=== PATIENT | female | born 1980 | race Caucasian/White ===

== ENCOUNTER 2019-03-24 21:42 | Emergency (ER) | payer SELFPAY ==
[~2019-03-24] VITALS: Ht 162.5 cm; Wt 89.5 kg
--- NOTE | 2019-03-24 22:07 | Diagnostic Imaging Report ---
INDICATION: Status post fall at work 4 days ago. Continued pain. TECHNIQUE: 3 views of the right wrist CORRELATION STUDY: None FINDINGS: The osseous structures of the wrist have an unremarkable appearance. Alignment is anatomic. There is no acute bony abnormality. The visualized soft tissues appearing unremarkable. IMPRESSION: 1. Negative examination of the wrist. Dictated by: Dictated on workstation # [id number]
--- NOTE | 2019-03-24 22:11 | ED Upper Extremity ---
General Chief Complaint: Upper Extremity Stated Complaint: RIGHT WRIST PAIN Nursing Triage Note: PT. REPORTED RIGHT WRIST HAS BEEN HURTING FOR A WEEK. SHE SLIPPED ABOUT A WEEK AGO AT WORK AND MAYBE HIT IT ON SOMETHING. SHE HAS USED ICE AND HEAT AND HAS BEEN TAKING ALEVE FOR THE PAIN. Nursing Sepsis Screen: No Definite Risk Source: patient History of Present Illness Date Seen by Provider: Mar 24, 2019 Time Seen by Provider: 22:10 Initial Comments 38 yo F presents with right wrist pain along ulnar side of wrist that has been present for 1 week. She was starting at new job when she did not have nonslick shoes to wear to work yet,. She slipped on the floor and hit her wrist against a sink. She has had pain from this injury all week. She did not go to work tonight because it had hurt so bad. She has no numbness or tingling to the hand or fingers. She has tried taking ibuprofen with little to no improvement. She has no prior problems with her wrist or hand in the past. Allergies and Home Medications Allergies Coded Allergies: No Known Drug Allergies (Unverified , 03/24/19) Patient Home Medication List Home Medication List Reviewed: Yes Review of Systems Constitutional: no symptoms reported Gastrointestinal: no symptoms reported Musculoskeletal: see HPI Skin: No change in color Psychiatric/Neurological: Denies Numbness, Denies Paresthesia Past Ntwevbq-Jgella-Hpopfb Hx Past Med/Social Hx: Reviewed Nursing Past Med/Soc Hx Patient Social History Recent Foreign Travel: No Contact w/Someone Who Travel: No Recent Infectious Disease Expo: No Recent Hopitalizations: No Physical Abuse: No Sexual Abuse: No Mistreated: No Fear: No Seasonal Allergies Seasonal Allergies: No Past Medical History Surgeries: No Respiratory: No Cardiac: No Neurological: No Genitourinary: No Gastrointestinal: No Musculoskeletal: No Endocrine: No HEENT: No Cancer: No Psychosocial: No Integumentary: No Blood Disorders: No Physical Exam Vital Signs Vital Signs - First Documented 03/24/19 21:48 Temp 36.9 Pulse 93 Resp 18 B/P (MAP) 130/96 (107) Pulse Ox 98 O2 Delivery Room Air Capillary Refill : Less Than 3 Seconds Height, Weight, BMI Height: '" Weight: lbs. oz. kg; 33.00 BMI Method: General Appearance: WD/WN, no apparent distress Cardiovascular: normal peripheral pulses Wrist: Yes bone tenderness (right distal ulna); No deformity, No ecchymosis; Yes limited ROM (decreased range of motion right wrist due to pain), Yes pain (tender to palpation over right distal ulnar area); No swelling Neurologic/Tendon: normal sensation, normal motor functions, normal tendon functions Neurologic/Psychiatric: alert, oriented x 3 Skin: normal color, warm/dry Progress/Results/Core Measures Results/Orders My Orders Orders - ALBERT LOWRY MD Wrist 3 View Right (03/24/19 21:55) Wrist-[place] (03/24/19 22:54) Vital Signs/I&O 03/24/19 03/24/19 21:48 23:04 Temp 36.9 36.9 Pulse 93 93 Resp 18 18 B/P (MAP) 130/96 (107) 130/96 (107) Pulse Ox 98 98 O2 Delivery Room Air Room Air Blood Pressure Mean: 107 POS Progress Progress Note : Progress Note treat with cock up wrist splint and NSAIDS. Advised that if she is not improving then she should follow up with clinic or ortho for continued problems. Diagnostic Imaging Diagonstic Imaging: Xray Plain Films/CT/US/NM/MRI: other (wrist) Comments NAME: CORBY MARKS MED REC#: [id number] PT STATUS: REG ER : 1980 PHYSICIAN: ALBERT LOWRY MD ADMIT DATE: 03/24/19/ER FS Draft POSDate of Exam:03/24/19 WRIST 3 VIEW RIGHT INDICATION: Status post fall at work 4 days ago. Continued pain. TECHNIQUE: 3 views of the right wrist CORRELATION STUDY: None FINDINGS: The osseous structures of the wrist have an unremarkable appearance. Alignment is anatomic. There is no acute bony abnormality. The visualized soft tissues appearing unremarkable. IMPRESSION: 1. Negative examination of the wrist. Dictated on workstation # [id number] Dict: 03/24/192205 Trans: 03/24/192205 DO [id number] Interpreted by: EZE NOLAN DO Electronically signed by: Departure Impression Primary Impression: Contusion of wrist Qualified Codes: S60.211A - Contusion of right wrist, initial encounter Additional Impression: Wrist pain, right Disposition: 01 HOME, SELF-CARE Condition: Stable Departure-Patient Inst. Decision time for Depature: 22:57 Referrals: NO,LOCAL PHYSICIAN (PCP) Primary Care Physician [facility] [place] [facility] [place] Patient Instructions: Contusion (DC), Common Wrist Injuries (DC) Add. Discharge Instructions: Wear wrist splint to help with pain and let your wrist heal and rest. Continue with Ibuprofen to help with pain and inflammation. A maximum dose would be 800 mg every 8 hours Check with clinic for continued pain and if not improving. Primary provider or Orthopedics for follow up. Everardo Rush with Orthopedics is in clinic here at [place] and can be reached by calling. [phone] All discharge instructions reviewed with patient and/or family. Voiced understanding. Work/School Note: Work Release Form Date Seen in the Emergency Department: Mar 24, 2019 Return to Work: Mar 25, 2019 Restrictions: Need Release from Doctor Other Restrictions Listed Below: May return 2018. Wear splint at work until released by provider. ALBERT LOWRY MD Mar 24, 2019 22:11 POS
[2019-03-24 23:04] VITALS: BP 130/96
== END 2019-03-24 23:04 | disposition home or self-care (01) ==
LOC: ER FS 21:45
DX: S60.211A Contusion of right wrist, initial encounter (principal); W01.198A Fall on same level from slipping, tripping and stumbling with subsequent striking against other object, initial encounter; Y92.59 Other trade areas as the place of occurrence of the external cause
CPT/HCPCS: 73110

== ENCOUNTER 2019-03-28 13:04 | Emergency (ER) | payer SELFPAY ==
[~2019-03-28] VITALS: Ht 162.5 cm; Wt 89.5 kg
--- NOTE | 2019-03-28 14:31 | ED Integumentary General ---
General Chief Complaint: Skin/Wound Problems Stated Complaint: RASH Nursing Triage Note: Pt presents to ED reporting she moved recently this week and acquired new furniture. Pt developed a macular rash scatered on extremities and jawline/scalp line. Pt reports intense itching. Source: patient History of Present Illness Date Seen by Provider: Mar 28, 2019 Time Seen by Provider: 14:31 Initial Comments 38-year-old female presenting with complaints of erythematous rash that is present along her face arms and she spots on her legs. She noted this within the last week since moving here. She thinks that it came on since she had acquired furniture from [employer]. She was the only family member that has this. Nob abigail else in the house has it. She has tried topical zqoe-xsw-frprjmf treatments without any success. She is continuing to have new spots arise. Nothing has helped. They're intensely itchy. Allergies and Home Medications Allergies Coded Allergies: No Known Drug Allergies (Unverified , 03/24/19) Home Medications Prednisone 20 Mg Tab, 40 MG PO DAILY Prescribed by: ALBERT LOWRY on 03/28/19 9971 Patient Home Medication List Home Medication List Reviewed: Yes Review of Systems Review of Systems Constitutional: No chills, No fever, No malaise EENTM: no symptoms reported Respiratory: no symptoms reported Cardiovascular: no symptoms reported Gastrointestinal: no symptoms reported Genitourinary: no symptoms reported Musculoskeletal: joint pain (recent injury to right wrist and still having some pain there) Skin: see HPI Psychiatric/Neurological: No Symptoms Reported Past Gzqgxkp-Huvwmk-Ywixvt Hx Past Med/Social Hx: Reviewed Nursing Past Med/Soc Hx Patient Social History Alcohol Use: Occasionally Uses Recreational Drug Use: No Smoking Status: Former Smoker Recent Foreign Travel: No Contact w/Someone Who Travel: No Recent Infectious Disease Expo: No Recent Hopitalizations: No Physical Abuse: No Sexual Abuse: No Mistreated: No Fear: No Seasonal Allergies Seasonal Allergies: No Past Medical History Surgeries: Yes Tubal Ligation Respiratory: No Cardiac: No Neurological: No 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) Gastrointestinal: No Musculoskeletal: No Endocrine: No HEENT: No Cancer: No Psychosocial: No Integumentary: Yes (rash developed 2 days ago when new furniture rec'd on a move) Blood Disorders: No Physical Exam Vital Signs Vital Signs - First Documented 03/28/19 13:24 Temp 36.5 Pulse 91 Resp 16 B/P (MAP) 137/86 (103) Pulse Ox 98 O2 Delivery Room Air Capillary Refill : Less Than 3 Seconds General Appearance: WD/WN, no apparent distress HEENT: PERRL/EOMI, pharynx normal Neck: non-tender, supple, normal inspection Cardiovascular: normal peripheral pulses, regular rate, rhythm Respiratory: chest non-tender, lungs clear, normal breath sounds Skin: warm/dry, rash (macular rash with several spots on her face and head as well as her arms and then 1 or 2 spots on her legs. The areas are approximately 2-3 cm in diameter. She does have some excoriation as well.) Skin Problem Location: face, scalp, upper extremities, lower extremities Skin Problem Character: macules Lymphatic: no adenopathy Progress/Results/Core Measures Results/Orders My Orders Orders - ALBERT LOWRY MD Dexamethasone Injection (Decadron Inject (03/28/19 14:45) Methylprednisolone Acetate Inj (Depo-Med (03/28/19 14:45) Vital Signs/I&O 03/28/19 03/28/19 13:24 14:58 Temp 36.5 36.6 Pulse 91 87 Resp 16 16 B/P (MAP) 137/86 (103) 137/94 (103) Pulse Ox 98 98 O2 Delivery Room Air Room Air Blood Pressure Mean: 103 POS Progress Progress Note : Progress Note Counseled that I cannot say exactly what was causing them. Will treat with steroids and antihistamines. Advised to check back with clinic if having continued concerns. Also advised that if this was related to the furniture was fleas or some sort of insect or bug on the furniture that she could assess [facility] maybe trying out the furniture. She could also try Aveeno oatmeal baths and see if that might help with itching. Departure Impression Primary Impression: Rash and nonspecific skin eruption Additional Impression: Pruritic dermatitis Disposition: 01 HOME, SELF-CARE Condition: Stable Departure-Patient Inst. Decision time for Depature: 14:47 Referrals: NO,LOCAL PHYSICIAN (PCP) Primary Care Physician [facility] [place] Patient Instructions: Skin Rash (DC), Itchy Skin Add. Discharge Instructions: The steroids and antihistamines will help with the rash and itching. For the antihistamines you could take Benadryl (Diphenhydramine) over the counter as 25 mg pills or capsules and take up to 50 mg every 4 to 6 hours as needed for rash and itching. You may take additional Prednisone by mouth for the next few days to help with the rash. Start these pills tomorrow since you had the steroid shots today. Try an Oatmeal bath such as by Aveeno or a store brand to help with itching and rash as well. In case this is from your new furniture you could see if the [employer] would let you trade out the furniture for a different set. All discharge instructions reviewed with patient and/or family. Voiced understanding. Scripts Prednisone (Prednisone) 20 Mg Tab 40 MG PO DAILY for 4 Days, #8 TAB 0 Refills Prov: ALBERT LOWRY MD 03/28/19 Work/School Note: Work Release Form Date Seen in the Emergency Department: Mar 28, 2019 Return to Work: Mar 31, 2019 Restrictions: No Restrictions ALBERT LOWRY MD Mar 28, 2019 14:31 POS
[2019-03-28] MEDS ORDERED: DEXAMETHASONE 10 MG/ML (DECADRON) 1 ML VIAL IM STA (14:45)
[2019-03-28] MEDS ORDERED: methylPREDNISolone 80 MG/ML (DEPO MEDROL) VIAL IM STA (14:45)
[2019-03-28] MEDS ORDERED: PRD20T PO (14:51)
[2019-03-28 14:58] VITALS: BP 137/94
== END 2019-03-28 14:58 | disposition home or self-care (01) ==
LOC: EDUNIT# 13:04 → ER FS 13:05
DX: L30.8 Other specified dermatitis (principal); Z87.891 Personal history of nicotine dependence; Z98.51 Tubal ligation status
CPT/HCPCS: 99282

== ENCOUNTER 2019-11-23 18:17 | Emergency (ER) | payer SELFPAY ==
[~2019-11-23] VITALS: Ht 162.5 cm; Wt 91.0 kg
[~2019-11-23 18:17] MED LIST: PRD20T PO
--- NOTE | 2019-11-23 18:21 | NUR ---
Went to call patient back and registration states she advised her that no visitors and her 14 y/o dgt was going to go to car then patient decided she was going back by house and drop her off and return.
[2019-11-23 18:37] VITALS: BP 136/81
--- NOTE | 2019-11-23 18:45 | ED General ---
General Stated Complaint: BUMP ON ABD Source of Information: Patient Exam Limitations: No Limitations History of Present Illness Date Seen by Provider: Nov 23, 2019 Time Seen by Provider: 18:40 Initial Comments Patient has an area of erythema and mild swelling in her lower mid abdomen right around the waistline. Reports his been there for a couple weeks to a month. It became more painful and swollen so she came in and have it evaluated. She reports in the past and a little bit of drainage but then right at this time. She denies any other systemic complaints such as fevers chills nausea vomiting Allergies and Home Medications Allergies Coded Allergies: No Known Drug Allergies (Unverified , 03/24/19) Home Medications Prednisone 20 Mg Tab, 40 MG PO DAILY Prescribed by: ALBERT LOWRY on 03/28/19 5696 Patient Home Medication List Home Medication List Reviewed: Yes Review of Systems Review of Systems Constitutional: No chills, No fever EENTM: no symptoms reported Respiratory: no symptoms reported Cardiovascular: no symptoms reported Gastrointestinal: no symptoms reported Musculoskeletal: no symptoms reported Skin: see HPI Psychiatric/Neurological: No Symptoms Reported Past Njfsgzu-Csulkb-Evkxop Hx Past Med/Social Hx: Reviewed Nursing Past Med/Soc Hx Patient Social History Recent Foreign Travel: No Contact w/Someone Who Travel: No Recent Hopitalizations: No Seasonal Allergies Seasonal Allergies: No Past Medical History Surgeries: Yes Tubal Ligation Respiratory: No Cardiac: No Neurological: No 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 oz. kg; 33.00 BMI Method: General Appearance: No Apparent Distress, WD/WN Neck: Full Range of Motion Respiratory: Lungs Clear, Normal Breath Sounds Cardiovascular: Regular Rate, Rhythm, No Edema, Normal Peripheral Pulses Gastrointestinal: Non Tender, Soft Extremity: Normal Range of Motion Skin: Other (small area of irritation with mild cellulitis mild early subcutaneous abscess.) Progress/Results/Core Measures Suspected Sepsis SIRS Temperature: Pulse: Respiratory Rate: Blood Pressure / Mean: Results/Orders Vital Signs/I&O Capillary Refill : Departure Impression Primary Impression: Cutaneous abscess of abdominal wall Disposition: HOME, SELF-CARE Condition: Stable Departure-Patient Inst. Referrals: NO,LOCAL PHYSICIAN (PCP/Family) Primary Care Physician Patient Instructions: Skin Abscess Add. Discharge Instructions: Warm compress to affected area Follow-up with your primary care provider in 5-7 days for recheck of wound, earlier if significantly worse and Scripts Sulfamethoxazole/Trimethoprim (Bactrim Ds Tablet) 1 Each Tablet 1 EACH PO BID for 7 Days, #14 TAB Prov: LUCITA CANDELARIA DO 11/23/19 LUCITA CANDELARIA DO Nov 23, 2019 18:45
[2019-11-23] MEDS ORDERED: SULF1TAB35 PO (18:46)
--- OUTSIDE RECORDS SUMMARY | 2019-11-23 20:56 | XMS REPORT | Continuity of Care Document ---
Author Organization Unknown Address Unknown Phone Unavailable Allergies Active Description Code Type Severity Reaction Onset Reported/Identified Relationship to Patient Clinical Status Yes No Known Drug Allergies [id number] Drug Allergy Unknown N/A 03/24/2019 Medications There is no data. Problems Date Dx Coded Attending Type Code Diagnosis Diagnosed By 03/24/2019 ALBERT LOWRY MD Ot M25.5 31 PAIN IN RIGHT WRIST 03/24/2019 ALBERT LOWRY MD Ot S60.211A CONTUSION OF RIGHT WRIST, INITIAL ENCOUN 03/24/2019 ALBERT LOWRY MD Ot W01.198A FALL SAME LEV FROM SLIP/TRIP W STRIKE AG 03/24/2019 ALBERT LOWRY MD Ot Y92.[address] 03/26/2019 ALBERT LOWRY MD Ot M25.5 31 PAIN IN RIGHT WRIST 03/26/2019 ALBERT LOWRY MD Ot S60.211A CONTUSION OF RIGHT WRIST, INITIAL ENCOUN 03/26/2019 ALBERT LOWRY MD Ot W01.198A FALL SAME LEV FROM SLIP/TRIP W STRIKE AG 03/26/2019 ALBERT LOWRY MD Ot Y92.[address] Procedures There is no data. Results There is no data. Encounters ACCT No. Visit Date/Time Discharge Status Pt. Type Provider Facility Loc./Unit Complaint [id number] 03/28/2019 13:05:00 019 14:58:00 DIS Emergency ALBERT LOWRY MD [facility] ER FS RASH [id number] 03/24/2019 21:45:00 019 23:04:00 DIS Emergency ALBERT LOWRY MD [facility] ER FS RIGHT WRIST PAIN
== END 2019-11-23 18:52 | disposition home or self-care (01) ==
LOC: EDUNIT# 18:17 → ER FS 18:19
DX: L02.211 Cutaneous abscess of abdominal wall (principal); Z79.52 Long term (current) use of systemic steroids
CPT/HCPCS: 99282

== ENCOUNTER 2019-12-24 05:18 | Emergency (ER) | payer SELFPAY ==
[~2019-12-24] VITALS: Ht 162.6 cm; Wt 84.1 kg
[~2019-12-24 05:18] MED LIST changes: +SULF1TAB35 PO
[2019-12-24 06:00] LABS: BILIRUBIN,URINE NEGATIVE (NEGATIVE); CLARITY,URINE SL CLOUDY; COLOR,URINE YELLOW; GLUCOSE, URINE (UA) NEGATIVE (NEGATIVE); KETONES,URINE NEGATIVE (NEGATIVE); LEUKOCYTE ESTERASE ,URINE 2+ (NEGATIVE); NITRITE,URINE NEGATIVE (NEGATIVE); PROTEIN,URINE NEGATIVE (NEGATIVE)
[2019-12-24 06:01] LABS: BACTERIA,URINE MODERATE /HPF; WBC,URINE 25-50 /HPF
[2019-12-24 06:37] VITALS: BP 127/79
== END 2019-12-24 06:37 | disposition home or self-care (01) ==
LOC: EDUNIT# 05:18 → ER FS 05:21
DX: N30.90 Cystitis, unspecified without hematuria (principal)
CPT/HCPCS: 81000; 87088; 99282

== ENCOUNTER 2020-03-23 06:03 | Emergency (ER) | payer SELFPAY ==
[~2020-03-23] VITALS: Ht 162.6 cm; Wt 84.1 kg
[2020-03-23] MEDS ORDERED: fentaNYL INJECTION 100 MCG/2 ML AMP IVP ONE (06:30)
[2020-03-23] MEDS ORDERED: ONDANSETRON 4 MG/2 ML (SDV) Z0FRAN IVP ONE (06:30)
--- NOTE | 2020-03-23 06:32 | ED General ---
General Chief Complaint: General Problems/Pain Stated Complaint: ABD PAIN,LIGHTHEADED Source of Information: Patient (MC ADAMS DO) History of Present Illness Date Seen by Provider: Mar 23, 2020 Time Seen by Provider: 06:15 Initial Comments Patient is a 39-year-old female who presents with substernal chest pain starting 45 minutes prior to ED arrival waking patient from sleep. Pain is described as dull heavy is rated moderate to severe. Patient reports feeling short of breatH secondary to the pain. Denies cough, fever, chills, sore throat. Reports sinus drainage for the past month. No upper abdominal pain. No back pain. No leg pain or swelling. No history of DVT or PE. Patient menstrual period scheduled to have her menstrual period this week. Timing/Duration: 1-3 Hours Severity: Moderate Modifying Factors: improves with Medication Associated Systoms: Shortness of Air (MC ADAMS DO) Allergies and Home Medications Allergies Coded Allergies: No Known Drug Allergies (Unverified , 03/24/19) Home Medications Prednisone 20 Mg Tab, 40 MG PO DAILY Prescribed by: ALBERT LOWRY on 03/28/19 1451 Sulfamethoxazole/Trimethoprim 1 Each Tablet, 1 EACH PO BID Prescribed by: LUCITA CANDELARIA on 11/23/19 1846 Patient Home Medication List Home Medication List Reviewed: Yes (MC ADAMS DO) Review of Systems Review of Systems Constitutional: see HPI EENTM: see HPI Respiratory: see HPI Cardiovascular: see HPI Gastrointestinal: see HPI Genitourinary: see HPI : No Musculoskeletal: no symptoms reported Skin: see HPI Psychiatric/Neurological: Anxiety Hematologic/Lymphatic: No Symptoms Reported (MC ADAMS DO) All Other Systems Reviewed Negative Unless Noted: Yes (MC ADAMS DO) Past Tfjybyr-Isorvr-Mrwfob Hx Past Med/Social Hx: Reviewed Nursing Past Med/Soc Hx (MC ADAMS DO) Patient Social History Alcohol Use: Occasionally Uses Recreational Drug Use: No Smoking Status: Never a Smoker 2nd Hand Smoke Exposure: No Recent Foreign Travel: No (N) Contact w/Someone Who Travel: No Recent Hopitalizations: No Physical Abuse: No Sexual Abuse: No Mistreated: No Fear: No (MC ADAMS DO) Seasonal Allergies Seasonal Allergies: No (MC ADAMS DO) Past Medical History Surgeries: Yes Tubal Ligation Respiratory: No Cardiac: No Neurological: No 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 oz. kg; 31.00 BMI Method: General Appearance: WD/WN, Anxious, Mild Distress Eyes: Bilateral Eye Normal Inspection, Bilateral Eye PERRL, Bilateral Eye EOMI HEENT: Normal ENT Inspection, Pharynx Normal Neck: Full Range of Motion, Non Tender, Supple Respiratory: Chest Non Tender, Lungs Clear Cardiovascular: Regular Rate, Rhythm, No Edema Gastrointestinal: Non Tender, Soft Extremity: Non Tender Neurologic/Psychiatric: Alert, Oriented x3 (MC ADAMS DO) Focused Exam Sepsis Stage: Ruled Out (MC ADAMS DO) Progress/Results/Core Measures Suspected Sepsis SIRS Temperature: Pulse: Respiratory Rate: Blood Pressure / Mean: (MC ADAMS DO) Results/Orders Lab Results Laboratory Tests Test 03/23/20 06:30 Range/Units White Blood Count 7.2 4.3-11.0 10^3/uL Red Blood Count 4.38 4.35-5.85 10^6/uL Hemoglobin 12.3 11.5-16.0 G/DL Hematocrit 38 35-52 % Mean Corpuscular Volume 87 80-99 FL Mean Corpuscular Hemoglobin 28 25-34 PG Mean Corpuscular Hemoglobin Concent 33 32-36 G/DL Red Cell Distribution Width 12.4 10.0-14.5 % Platelet Count 321 130-400 10^3/uL Mean Platelet Volume 9.9 7.4-10.4 FL Immature Granulocyte % (Auto) 0 % Neutrophils (%) (Auto) 60 42-75 % Lymphocytes (%) (Auto) 26 12-44 % Monocytes (%) (Auto) 10 0-12 % Eosinophils (%) (Auto) 4 0-10 % Basophils (%) (Auto) 1 0-10 % Neutrophils # (Auto) 4.4 1.8-7.8 X 10^3 Lymphocytes # (Auto) 1.9 1.0-4.0 X 10^3 Monocytes # (Auto) 0.7 0.0-1.0 X 10^3 Eosinophils # (Auto) 0.3 0.0-0.3 10^3/uL Basophils # (Auto) 0.0 0.0-0.1 10^3/uL Immature Granulocyte # (Auto) 0.0 0.0-0.1 10^3/uL D-Dimer 0.16 0.00-0.49 UG/ML Sodium Level 138 135-145 MMOL/L Potassium Level 3.9 3.6-5.0 MMOL/L Chloride Level 104 98-107 MMOL/L Carbon Dioxide Level 24 21-32 MMOL/L Anion Gap 10 5-14 MMOL/L Blood Urea Nitrogen 12 7-18 MG/DL Creatinine 0.79 0.60-1.30 MG/DL Estimat Glomerular Filtration Rate > 60 BUN/Creatinine Ratio 15 Glucose Level 110 H 70-105 MG/DL Calcium Level 8.9 8.5-10.1 MG/DL Corrected Calcium 8.7 8.5-10.1 MG/DL Total Bilirubin 0.4 0.1-1.0 MG/DL Aspartate Amino Transf (AST/SGOT) 12 5-34 U/L Alanine Aminotransferase (ALT/SGPT) 8 0-55 U/L Alkaline Phosphatase 71 40-136 U/L Troponin I < 0.30 <0.30 NG/ML C-Reactive Protein 0.65 H <0.50 MG/DL Pro-B-Type Natriuretic Peptide 42.1 <75.0 PG/ML Total Protein 7.0 6.4-8.2 GM/DL Albumin 4.2 3.2-4.5 GM/DL Lipase 28 8-78 U/L Human Chorionic Gonadotropin, Quant < 5 <5 MIU/ML (ROVENSTINE,SHANTANU L DO) My Orders Orders - ROVENSTINE,SHANTANU L DO Ketorolac Injection (Toradol Injection) (03/23/20 08:15) Ekg Tracing (03/23/20 08:30) Troponin I Fs (03/23/20 08:30) (ROVENSTINE,SHANTANU L DO) Medications Given in ED Current Medications Medications Dose Ordered Sig/Radha Route Start Time Stop Time Status Last Admin Dose Admin Fentanyl Citrate 50 mcg ONCE ONCE IVP 03/23/20 06:30 03/23/20 06:31 DC 03/23/20 06:29 50 MCG Ketorolac Tromethamine 30 mg ONCE ONCE IVP 03/23/20 08:15 03/23/20 08:16 DC 03/23/20 08:28 30 MG Ondansetron HCl 4 mg ONCE ONCE IVP 03/23/20 06:30 03/23/20 06:31 DC 03/23/20 06:29 4 MG (SHANTANU MACIAS DO) Vital Signs/I&O 03/23/20 03/23/20 06:05 08:28 Temp 36.0 36.0 Pulse 90 Resp 20 B/P (MAP) 128/73 (91) Pulse Ox 98 O2 Delivery Room Air (SHANTANU MACIAS DO) Vital Signs/I&O Capillary Refill : (MC ADAMS DO) Progress Note : Progress Note Took over the care for this patient at shift change, [address] Adams. Discussed history of present illness as well as cardiac risk factors, normal EKG and pending labs. Reviewed patient's initial labs which were normal and repeated troponin and EKG After 2 hours and were normal. Patient given fentanyl initially, then followed by IV Toradol with moderate improvement of her lower chest discomfort. Patient states pain is nearly resolved. Pain worse with a deep breath, although no cough or shortness of air. No history of GERD or reflux symptoms. Anti-inflammatory for a week and advised to establish and follow up with PCP next 5-7 days if symptoms are not resolved. Advised to return to the ER should her pain become worse or uncontrolled. Patient expresses understanding (SHANTANU MACIAS DO) ECG Initial ECG Impression Date: Mar 23, 2020 Initial ECG Impression Time: 08:26 Initial ECG Rate: 69 Initial ECG Rhythm: Normal Sinus Initial ECG Intervals: Normal Initial ECG Impression: Normal (SHANTANU MACIAS DO) Departure Communication (Admissions) EKG: Normal sinus rhythm, rate 84, right bundle branch block, possible LVH. QTC 434. No acute ST-T wave changes. 39-year-old female with atypical chest pain awaking her from sleep. Vital signs stable. EKG unremarkable. Workup in progress. Cared to be transitioned to oncoming ERP for further management and disposition at 07:00 . (MC ADAMS DO) Impression Primary Impression: Chest pain Qualified Codes: R07.9 - Chest pain, unspecified Disposition: 01 HOME, SELF-CARE Condition: Improved Departure-Patient Inst. Decision time for Depature: 09:16 (SHANTANU MACIAS DO) Referrals: [facility] [place]YSIC[place] (PCP) Primary Care Physician Patient Instructions: Chest Pain (DC) Add. Discharge Instructions: Establish and follow up with a doctor in 5 to 7 days regarding your chest pain. REturn to the nearest ER with any return of severe chest pain All discharge instructions reviewed with patient and/or family. Voiced understanding. Scripts Naproxen (Naprosyn) 500 Mg Tablet 500 MG PO BID, #30 TAB 0 Refills Prov: SHANTANU MACIAS DO 03/23/20 Work/School Note: Work Release Form Date Seen in the Emergency Department: Mar 23, 2020 Return to Work: Mar 25, 2020 Restrictions: No Restrictions MC ADAMS DO Mar 23, 2020 06:32 SHANTANU MACIAS DO Mar 23, 2020 09:17
--- NOTE | 2020-03-23 07:00 | NUR ---
Report from night order selector Bouchra WHITAKER.
[2020-03-23 07:10] LABS: HEMATOCRIT 38 % (35-52); HEMOGLOBIN 12.3 G/DL (11.5-16.0); MEAN CORPUSCULAR HEMOGLOBIN 28 PG (25-34); MEAN CORPUSCULAR HGB CONC 33 G/DL (32-36); MEAN CORPUSCULAR VOLUME 87 FL (80-99); MEAN PLATELET VOLUME 9.9 FL (7.4-10.4); PLATELET COUNT 321 10^3/uL (130-400); WHITE BLOOD COUNT 7.2 10^3/uL (4.3-11.0)
[2020-03-23 07:11] LABS: BASOPHILS % (AUTO) 1 % (0-10); EOSINOPHILS # (AUTO) 0.3 10^3/uL (0.0-0.3); EOSINOPHILS % (AUTO) 4 % (0-10); LYMPHOCYTES # (AUTO) 1.9 X 10^3 (1.0-4.0); LYMPHOCYTES % (AUTO) 26 % (12-44); MONOCYTES # (AUTO) 0.7 X 10^3 (0.0-1.0); MONOCYTES % (AUTO) 10 % (0-12); NEUTROPHILS # (AUTO) 4.4 X 10^3 (1.8-7.8); NEUTROPHILS % (AUTO) 60 % (42-75)
--- NOTE | 2020-03-23 07:11 | Diagnostic Imaging Report ---
EXAMINATION: Chest 1 view HISTORY: Chest pain COMPARISON: None available. FINDINGS: The lungs are clear without edema or pneumonia. No pleural effusion or pneumothorax. Heart size is normal. IMPRESSION: 1. Clear lungs. Dictated by: Dictated on workstation # [id number]
[2020-03-23 07:42] LABS: CARBON DIOXIDE 24 MMOL/L (21-32); CHLORIDE 104 MMOL/L (98-107); POTASSIUM 3.9 MMOL/L (3.6-5.0); SODIUM 138 MMOL/L (135-145)
[2020-03-23 07:44] LABS: ALANINE AMINOTRANSFERASE 8 U/L (0-55); ALKALINE PHOSPHATASE 71 U/L (40-136); BILIRUBIN,TOTAL 0.4 MG/DL (0.1-1.0); BUN/CREATININE RATIO 15; CALCIUM 8.9 MG/DL (8.5-10.1); CREATININE SERUM 0.79 MG/DL (0.60-1.30); GFR ESTIMATED > 60; GLUCOSE 110 MG/DL (70-105)
[2020-03-23 07:45] LABS: ALBUMIN 4.2 GM/DL (3.2-4.5)
[2020-03-23 07:46] LABS: LIPASE 28 U/L (8-78)
[2020-03-23] MEDS ORDERED: KETOROLAC 30 MG/ML VIAL IVP ONE (08:15)
[2020-03-23] MEDS ORDERED: NAPR-1071 PO (09:16)
[2020-03-23 09:20] VITALS: BP 115/66
== END 2020-03-23 09:20 | disposition home or self-care (01) ==
LOC: EDUNIT# 06:03 → ER FS 06:06
DX: R07.9 Chest pain, unspecified (principal); F41.9 Anxiety disorder, unspecified; Z79.52 Long term (current) use of systemic steroids
CPT/HCPCS: 36415; 71045; 80053; 83690; 83880; 84484; 84702; 85025; 85379; 86141; 93005; 93041

== ENCOUNTER 2020-05-18 05:42 | Emergency (ER) | payer SELFPAY ==
[~2020-05-18] VITALS: Ht 162.5 cm; Wt 92.5 kg
[~2020-05-18 05:42] MED LIST changes: +NAPR-1071 PO
--- NOTE | 2020-05-18 05:56 | ED GI ---
General Chief Complaint: Abdominal/GI Problems Stated Complaint: F/N/V History of Present Illness Date Seen by Provider: May 18, 2020 Time Seen by Provider: 05:56 Initial Comments 40-year-old female presents with subjective fever, nausea, vomiting, diarrhea. Patient reports that her symptoms started 3 days ago. That she has not had a fever since yesterday morning, that her last episode of vomiting and nausea was last night. She did have a loose stool this morning. She feels like she has a little bit of congestion. She denies cough or shortness of breath. Allergies and Home Medications Allergies Coded Allergies: No Known Drug Allergies (Unverified , 03/24/19) Home Medications Naproxen 500 Mg Tablet, 500 MG PO BID Prescribed by: SHANTANU MACIAS on 03/23/20 0916 Prednisone 20 Mg Tab, 40 MG PO DAILY Prescribed by: ALBERT LOWRY on 03/28/19 1451 Sulfamethoxazole/Trimethoprim 1 Each Tablet, 1 EACH PO BID Prescribed by: LUCITA CANDELARIA on 11/23/19 1846 Patient Home Medication List Home Medication List Reviewed: Yes Review of Systems Review of Systems Constitutional: No chills; fever, malaise EENTM: No Symptoms Reported Respiratory: Denies Cough, Denies Shortness of Air Cardiovascular: Denies Chest Pain, Denies Lightheadedness Gastrointestinal: Diarrhea, Nausea, Vomiting Genitourinary: No Symptoms Reported Musculoskeletal: no symptoms reported Skin: no symptoms reported Psychiatric/Neurological: No Symptoms Reported Endocrine: No Symptoms Reported Past Vygppzt-Pewunc-Oxrzsl Hx Past Med/Social Hx: Reviewed Nursing Past Med/Soc Hx Patient Social History 2nd Hand Smoke Exposure: No Recent Hopitalizations: No Seasonal Allergies Seasonal Allergies: No Past Medical History Surgeries: Yes Tubal Ligation Respiratory: No Cardiac: No Neurological: No 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 oz. kg; 31.00 BMI Method: General Appearance: WD/WN HEENT: PERRL/EOMI, TMs normal Neck: full range of motion, supple Respiratory: lungs clear, normal breath sounds Cardiovascular: normal peripheral pulses Gastrointestinal: non tender, soft Extremities: normal range of motion, normal inspection Neurologic/Psychiatric: alert, normal mood/affect, oriented x 3 Skin: normal color, warm/dry Progress/Results/Core Measures Results/Orders Lab Results Laboratory Tests Test 05/18/20 05:54 05/18/20 06:00 Range/Units Urine Color YELLOW Urine Clarity CLEAR Urine pH 6.0 5-9 Urine Specific [place] >=1.030 1.016-1.022 Urine Protein NEGATIVE NEGATIVE Urine Glucose (UA) NEGATIVE NEGATIVE Urine Ketones NEGATIVE NEGATIVE Urine Nitrite NEGATIVE NEGATIVE Urine Bilirubin NEGATIVE NEGATIVE Urine Urobilinogen 0.2 < = 1.0 MG/DL Urine Leukocyte Esterase NEGATIVE NEGATIVE Urine RBC (Auto) 1+ H NEGATIVE Urine RBC 2-5 H /HPF Urine WBC 0-2 /HPF Urine Squamous Epithelial Cells 2-5 /HPF Urine Crystals NONE /LPF Urine Bacteria FEW H /HPF Urine Casts NONE /LPF Urine Mucus SMALL H /LPF Urine Culture Indicated NO White Blood Count 10.0 4.3-11.0 10^3/uL Red Blood Count 4.94 4.35-5.85 10^6/uL Hemoglobin 13.8 11.5-16.0 G/DL Hematocrit 43 35-52 % Mean Corpuscular Volume 87 80-99 FL Mean Corpuscular Hemoglobin 28 25-34 PG Mean Corpuscular Hemoglobin Concent 32 32-36 G/DL Red Cell Distribution Width 12.5 10.0-14.5 % Platelet Count 370 130-400 10^3/uL Mean Platelet Volume 9.8 7.4-10.4 FL Immature Granulocyte % (Auto) 0 % Neutrophils (%) (Auto) 66 42-75 % Lymphocytes (%) (Auto) 22 12-44 % Monocytes (%) (Auto) 9 0-12 % Eosinophils (%) (Auto) 3 0-10 % Basophils (%) (Auto) 1 0-10 % Neutrophils # (Auto) 6.6 1.8-7.8 X 10^3 Lymphocytes # (Auto) 2.2 1.0-4.0 X 10^3 Monocytes # (Auto) 0.9 0.0-1.0 X 10^3 Eosinophils # (Auto) 0.3 0.0-0.3 10^3/uL Basophils # (Auto) 0.1 0.0-0.1 10^3/uL Immature Granulocyte # (Auto) 0.0 0.0-0.1 10^3/uL Sodium Level 140 135-145 MMOL/L Potassium Level 4.2 3.6-5.0 MMOL/L Chloride Level 107 98-107 MMOL/L Carbon Dioxide Level 25 21-32 MMOL/L Anion Gap 8 5-14 MMOL/L Blood Urea Nitrogen 12 7-18 MG/DL Creatinine 0.73 0.60-1.30 MG/DL Estimat Glomerular Filtration Rate > 60 BUN/Creatinine Ratio 16 Glucose Level 115 H 70-105 MG/DL Calcium Level 9.2 8.5-10.1 MG/DL Corrected Calcium 9.0 8.5-10.1 MG/DL Total Bilirubin 0.2 0.1-1.0 MG/DL Aspartate Amino Transf (AST/SGOT) 12 5-34 U/L Alanine Aminotransferase (ALT/SGPT) 10 0-55 U/L Alkaline Phosphatase 75 40-136 U/L C-Reactive Protein 0.49 <0.50 MG/DL Total Protein 7.5 6.4-8.2 GM/DL Albumin 4.2 3.2-4.5 GM/DL Lipase 32 8-78 U/L My Orders Orders - CANDELARIA,LUCITA L DO Cbc With Automated Diff (05/18/20 06:00) Comprehensive Metabolic Panel (05/18/20 06:00) Lipase (05/18/20 06:00) Ua Culture If Indicated (05/18/20 06:00) Crp Fs (05/18/20 06:00) Acute Abd Series (05/18/20 06:00) Ns Iv 1000 Ml (Sodium Chloride 0.9%) (05/18/20 06:15) Vital Signs/I&O 05/18/20 05:45 Temp 36.1 Pulse 91 Resp 14 B/P (MAP) 121/74 (90) Pulse Ox 98 O2 Delivery Room Air Diagnostic Imaging Diagonstic Imaging: Xray Plain Films/CT/US/NM/MRI: abdomen Comments [facility] [place], [place] NAME: CORBY MARKS [facility] REC#: [id number] PT STATUS: REG ER : 1980 PHYSICIAN: LUCITA CANDELARIA DO ADMIT DATE: 05/18/20/ER FS Draft Date of Exam:05/18/20 ACUTE ABD SERIES INDICATION: Short of breath with nausea, vomiting and abdominal pain The upright chest shows no abnormality. The supine and upright views of the abdomen shows a nonobstructive nonspecific bowel gas pattern. There is no bowel wall edema or abnormally dilated loops of bowel. There is no intramural or free intraperitoneal air. There is no mass or calculus seen. There is no bony abnormality. IMPRESSION: No acute abnormality is seen. Dictated on workstation # [id number] Dict: 05/18/2027 Trans: 05/18/20 0631 CLYDE [id number] Interpreted by: FRANCE MAE MD Departure Impression Primary Impression: Viral syndrome Disposition: HOME, SELF-CARE Condition: Stable Departure-Patient Inst. Referrals: NO,LOCAL PHYSICIAN (PCP/Family) Primary Care Physician Patient Instructions: Viral Gastroenteritis, Viral Syndrome (DC) Add. Discharge Instructions: Follow-up with your primary care provider if symptoms are not improving All discharge instructions reviewed with patient and/or family. Voiced understanding. Work/School Note: Work Release Form Date Seen in the Emergency Department: May 18, 2020 Return to Work: May 20, 2020 Restrictions: Return-No Fever (24hrs), Return-No Vomiting(24hrs) LUCITA CANDELARIA DO May 18, 2020 05:56
[2020-05-18] MEDS ORDERED: NS IV 1000 ML 1,000 ML IV SCH (06:15)
[2020-05-18 06:29] LABS: HEMATOCRIT 43 % (35-52); HEMOGLOBIN 13.8 G/DL (11.5-16.0); LYMPHOCYTES % (AUTO) 22 % (12-44); MEAN CORPUSCULAR HEMOGLOBIN 28 PG (25-34); MEAN CORPUSCULAR HGB CONC 32 G/DL (32-36); MEAN CORPUSCULAR VOLUME 87 FL (80-99); MEAN PLATELET VOLUME 9.8 FL (7.4-10.4); MONOCYTES % (AUTO) 9 % (0-12); NEUTROPHILS % (AUTO) 66 % (42-75); PLATELET COUNT 370 10^3/uL (130-400)
[2020-05-18 06:30] LABS: BASOPHILS % (AUTO) 1 % (0-10); EOSINOPHILS % (AUTO) 3 % (0-10)
[2020-05-18 06:32] LABS: BASOPHILS # (AUTO) 0.1 10^3/uL (0.0-0.1); EOSINOPHILS # (AUTO) 0.3 10^3/uL (0.0-0.3); LYMPHOCYTES # (AUTO) 2.2 X 10^3 (1.0-4.0); MONOCYTES # (AUTO) 0.9 X 10^3 (0.0-1.0); NEUTROPHILS # (AUTO) 6.6 X 10^3 (1.8-7.8)
--- NOTE | 2020-05-18 06:32 | Diagnostic Imaging Report ---
INDICATION: Short of breath with nausea, vomiting and abdominal pain The upright chest shows no abnormality. The supine and upright views of the abdomen shows a nonobstructive nonspecific bowel gas pattern. There is no bowel wall edema or abnormally dilated loops of bowel. There is no intramural or free intraperitoneal air. There is no mass or calculus seen. There is no bony abnormality. IMPRESSION: No acute abnormality is seen. Dictated by: Dictated on workstation # [id number]
[2020-05-18 06:38] LABS: BILIRUBIN,URINE NEGATIVE (NEGATIVE); CLARITY,URINE CLEAR; COLOR,URINE YELLOW; GLUCOSE, URINE (UA) NEGATIVE (NEGATIVE); NITRITE,URINE NEGATIVE (NEGATIVE); PROTEIN,URINE NEGATIVE (NEGATIVE)
[2020-05-18 06:39] LABS: BACTERIA,URINE FEW /HPF; KETONES,URINE NEGATIVE (NEGATIVE); LEUKOCYTE ESTERASE ,URINE NEGATIVE (NEGATIVE); WBC,URINE 0-2 /HPF
[2020-05-18 06:49] LABS: ALANINE AMINOTRANSFERASE 10 U/L (0-55); ALKALINE PHOSPHATASE 75 U/L (40-136); BILIRUBIN,TOTAL 0.2 MG/DL (0.1-1.0); BUN/CREATININE RATIO 16; CALCIUM 9.2 MG/DL (8.5-10.1); CARBON DIOXIDE 25 MMOL/L (21-32); CHLORIDE 107 MMOL/L (98-107); CREATININE SERUM 0.73 MG/DL (0.60-1.30); GFR ESTIMATED > 60; GLUCOSE 115 MG/DL (70-105); POTASSIUM 4.2 MMOL/L (3.6-5.0); SODIUM 140 MMOL/L (135-145)
[2020-05-18 06:50] LABS: ALBUMIN 4.2 GM/DL (3.2-4.5); LIPASE 32 U/L (8-78); TOTAL PROTEIN 7.5 GM/DL (6.4-8.2)
[2020-05-18 06:57] VITALS: BP 121/74
== END 2020-05-18 07:00 | disposition home or self-care (01) ==
LOC: EDUNIT# 05:42 → ER FS 05:45
DX: B34.9 Viral infection, unspecified (principal); Z79.52 Long term (current) use of systemic steroids
CPT/HCPCS: 36415; 74022; 80053; 81000; 83690; 85025; 86141

== ENCOUNTER 2020-09-07 09:52 | Emergency (ER) | payer SELFPAY ==
[~2020-09-07] VITALS: Ht 162.6 cm; Wt 93.4 kg
[2020-09-07 10:29] LABS: BASOPHILS % (AUTO) 0 % (0-10); EOSINOPHILS # (AUTO) 0.1 10^3/uL (0.0-0.3); EOSINOPHILS % (AUTO) 1 % (0-10); HEMATOCRIT 39 % (35-52); HEMOGLOBIN 12.4 G/DL (11.5-16.0); LYMPHOCYTES # (AUTO) 1.8 X 10^3 (1.0-4.0); LYMPHOCYTES % (AUTO) 18 % (12-44); MEAN CORPUSCULAR HEMOGLOBIN 29 PG (25-34); MEAN CORPUSCULAR HGB CONC 32 G/DL (32-36); MEAN CORPUSCULAR VOLUME 89 FL (80-99); MEAN PLATELET VOLUME 9.8 FL (7.4-10.4); MONOCYTES # (AUTO) 0.7 X 10^3 (0.0-1.0); MONOCYTES % (AUTO) 8 % (0-12); NEUTROPHILS # (AUTO) 7.1 X 10^3 (1.8-7.8); NEUTROPHILS % (AUTO) 73 % (42-75); PLATELET COUNT 319 10^3/uL (130-400); WHITE BLOOD COUNT 9.8 10^3/uL (4.3-11.0)
[2020-09-07 10:31] LABS: BACTERIA,URINE NEGATIVE /HPF; BILIRUBIN,URINE NEGATIVE (NEGATIVE); CLARITY,URINE CLEAR; COLOR,URINE YELLOW; GLUCOSE, URINE (UA) NEGATIVE (NEGATIVE); KETONES,URINE NEGATIVE (NEGATIVE); LEUKOCYTE ESTERASE ,URINE NEGATIVE (NEGATIVE); NITRITE,URINE NEGATIVE (NEGATIVE); PH,URINE 5.5 (5-9); PROTEIN,URINE NEGATIVE (NEGATIVE)
[2020-09-07] MEDS ORDERED: ONDANSETRON 4 MG/2 ML (SDV) Z0FRAN IVP ONE (10:45)
[2020-09-07] MEDS ORDERED: NS IV 1000 ML 1,000 ML IV SCH (10:45)
[2020-09-07 10:48] LABS: ALANINE AMINOTRANSFERASE 12 U/L (0-55); ALBUMIN 4.3 GM/DL (3.2-4.5); ALKALINE PHOSPHATASE 68 U/L (40-136); BILIRUBIN,TOTAL 0.4 MG/DL (0.1-1.0); BUN/CREATININE RATIO 13; CARBON DIOXIDE 23 MMOL/L (21-32); CHLORIDE 105 MMOL/L (98-107); CREATININE SERUM 0.76 MG/DL (0.60-1.30); GFR ESTIMATED > 60; GLUCOSE 91 MG/DL (70-105); POTASSIUM 3.5 MMOL/L (3.6-5.0); SODIUM 139 MMOL/L (135-145); TOTAL PROTEIN 7.2 GM/DL (6.4-8.2)
[2020-09-07] MEDS ORDERED: ONDA4TAB11 PO (10:59)
--- NOTE | 2020-09-07 11:00 | ED GI ---
General Chief Complaint: Abdominal/GI Problems Stated Complaint: DIARRHEA; DRY MOUTH; VOMITING; RT EAR PAIN Nursing Triage Note: Patient reports right ear pain, nausea, vomiting, and diarrhea for 2 days. She denies any sick contacts. Sepsis Screen: No Definite Risk Source of Information: Patient History of Present Illness Date Seen by Provider: September 07, 2020 Time Seen by Provider: 10:10 Initial Comments 40-year-old female presents with intermittent nausea and loose stool for the past 2 days. Denies abdominal pain, loss of appetite, fever or chills. Denies any known sick contacts. Denies chest pain, shortness of air or swelling of extremities. Also complains of some intermittent right ear pain without drainage. Allergies and Home Medications Allergies Coded Allergies: No Known Drug Allergies (Unverified , 03/24/19) Home Medications Naproxen 500 Mg Tablet, 500 MG PO BID Prescribed by: SHANTANU MACIAS on 03/23/20 0916 Ondansetron 4 Mg Tab.rapdis, 4 MG PO TID Prescribed by: SHANTANU MACIAS on 09/07/20 1059 Prednisone 20 Mg Tab, 40 MG PO DAILY Prescribed by: ALBERT LOWRY on 03/28/19 1451 Sulfamethoxazole/Trimethoprim 1 Each Tablet, 1 EACH PO BID Prescribed by: LUCITA CANDELARIA on 11/23/19 1846 Patient Home Medication List Home Medication List Reviewed: Yes Review of Systems Review of Systems Constitutional: see HPI; No fever, No malaise, No weakness EENTM: See HPI, Ear Pain (R only); No Nose Congestion, No Nose Pain, No Throat Pain, No Throat Swelling Respiratory: No Symptoms Reported Cardiovascular: No Symptoms Reported Gastrointestinal: See HPI; Denies Abdominal Pain; Diarrhea (loose stool), Nausea; Denies Poor Appetite, Denies Poor Fluid Intake, Denies Rectal Bleeding; Vomiting (intermittent) Past Mwlhphy-Jozgds-Lytqgs Hx Past Med/Social Hx: Reviewed Nursing Past Med/Soc Hx Patient Social History Alcohol Use: Occasionally Uses Smoking Status: Never a Smoker 2nd Hand Smoke Exposure: No Recent Infectious Disease Expo: No Recent Hopitalizations: No Seasonal Allergies Seasonal Allergies: No Past Medical History Surgeries: Yes Tubal Ligation Respiratory: No Cardiac: No Neurological: No Last Menstrual Period: Aug 12, 2020 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 oz. kg; 35.00 BMI Method: General Appearance: WD/WN, no apparent distress HEENT: PERRL/EOMI, normal ENT inspection Neck: non-tender, supple; No lymphadenopathy (R), No lymphadenopathy (L) Respiratory: chest non-tender, lungs clear, normal breath sounds, no respiratory distress, no accessory muscle use Cardiovascular: regular rate, rhythm, no edema, no gallop, no JVD Gastrointestinal: non tender, soft Extremities: non-tender, normal inspection Back: normal inspection, no CVA tenderness Neurologic/Psychiatric: no motor/sensory deficits, alert Skin: normal color, warm/dry Progress/Results/Core Measures Results/Orders Lab Results Laboratory Tests Test 09/07/20 09:55 09/07/20 10:15 Range/Units Urine Color YELLOW Urine Clarity CLEAR Urine pH 5.5 5-9 Urine Specific [place] >=1.030 1.016-1.022 Urine Protein NEGATIVE NEGATIVE Urine Glucose (UA) NEGATIVE NEGATIVE Urine Ketones NEGATIVE NEGATIVE Urine Nitrite NEGATIVE NEGATIVE Urine Bilirubin NEGATIVE NEGATIVE Urine Urobilinogen NORMAL < = 1.0 MG/DL Urine Leukocyte Esterase NEGATIVE NEGATIVE Urine RBC (Auto) 2+ H NEGATIVE Urine RBC 10-25 H /HPF Urine WBC NONE /HPF Urine Crystals NONE /LPF Urine Bacteria NEGATIVE /HPF Urine Casts NONE /LPF Urine Mucus MODERATE H /LPF Urine Culture Indicated NO White Blood Count 9.8 4.3-11.0 10^3/uL Red Blood Count 4.35 4.35-5.85 10^6/uL Hemoglobin 12.4 11.5-16.0 G/DL Hematocrit 39 35-52 % Mean Corpuscular Volume 89 80-99 FL Mean Corpuscular Hemoglobin 29 25-34 PG Mean Corpuscular Hemoglobin Concent 32 32-36 G/DL Red Cell Distribution Width 12.8 10.0-14.5 % Platelet Count 319 130-400 10^3/uL Mean Platelet Volume 9.8 7.4-10.4 FL Immature Granulocyte % (Auto) 0 % Neutrophils (%) (Auto) 73 42-75 % Lymphocytes (%) (Auto) 18 12-44 % Monocytes (%) (Auto) 8 0-12 % Eosinophils (%) (Auto) 1 0-10 % Basophils (%) (Auto) 0 0-10 % Neutrophils # (Auto) 7.1 1.8-7.8 X 10^3 Lymphocytes # (Auto) 1.8 1.0-4.0 X 10^3 Monocytes # (Auto) 0.7 0.0-1.0 X 10^3 Eosinophils # (Auto) 0.1 0.0-0.3 10^3/uL Basophils # (Auto) 0.0 0.0-0.1 10^3/uL Immature Granulocyte # (Auto) 0.0 0.0-0.1 10^3/uL Sodium Level 139 135-145 MMOL/L Potassium Level 3.5 L 3.6-5.0 MMOL/L Chloride Level 105 98-107 MMOL/L Carbon Dioxide Level 23 21-32 MMOL/L Anion Gap 11 5-14 MMOL/L Blood Urea Nitrogen 10 7-18 MG/DL Creatinine 0.76 0.60-1.30 MG/DL Estimat Glomerular Filtration Rate > 60 BUN/Creatinine Ratio 13 Glucose Level 91 70-105 MG/DL Calcium Level 9.0 8.5-10.1 MG/DL Corrected Calcium 8.8 8.5-10.1 MG/DL Total Bilirubin 0.4 0.1-1.0 MG/DL Aspartate Amino Transf (AST/SGOT) 16 5-34 U/L Alanine Aminotransferase (ALT/SGPT) 12 0-55 U/L Alkaline Phosphatase 68 40-136 U/L Total Protein 7.2 6.4-8.2 GM/DL Albumin 4.3 3.2-4.5 GM/DL My Orders Orders - ROVENSTINESHANTANU DO Ed Iv/Invasive Line Start (09/07/20 10:03) Cbc With Automated Diff (09/07/20 10:03) Comprehensive Metabolic Panel (09/07/20 10:03) Urinalysis (09/07/20 10:03) Ns Iv 1000 Ml (Sodium Chloride 0.9%) (09/07/20 10:45) Ondansetron Injection (Zofran Injectio (09/07/20 10:45) Medications Given in ED Current Medications Medications Dose Ordered Sig/Radha Route Start Time Stop Time Status Last Admin Dose Admin Ondansetron HCl 4 mg ONCE ONCE IVP 09/07/20 10:45 09/07/20 10:46 DC 09/07/20 10:55 4 MG Vital Signs/I&O 09/07/20 10:07 Temp 36.7 Pulse 89 Resp 18 B/P (MAP) 144/91 (108) Pulse Ox 94 O2 Delivery Room Air Blood Pressure Mean: 108 Departure Impression Primary Impression: Nausea and vomiting Qualified Codes: R11.2 - Nausea with vomiting, unspecified Disposition: HOME, SELF-CARE Condition: Stable Departure-Patient Inst. Decision time for Depature: 10:58 Referrals: NO,LOCAL PHYSICIAN (PCP/Family) Primary Care Physician Patient Instructions: Nausea and Vomiting, Adult Add. Discharge Instructions: Follow up with your PCP in 3 days if not improving, ER sooner if worse and unable to see your PCP All discharge instructions reviewed with patient and/or family. Voiced understanding. Scripts Ondansetron (Ondansetron Odt) 4 Mg Tab.rapdis 4 MG PO TID for Nausea, #10 TAB Prov: SHANTANU MACIAS DO 09/07/20 SHANTANU MACIAS DO September 07, 2020 11:00
[2020-09-07 12:10] VITALS: BP 124/72
== END 2020-09-07 12:10 | disposition home or self-care (01) ==
LOC: EDUNIT# 09:52 → ER FS 09:53
DX: R11.2 Nausea with vomiting, unspecified (principal); Z79.52 Long term (current) use of systemic steroids
CPT/HCPCS: 36415; 80053; 81000; 85025

== ENCOUNTER 2021-03-13 12:03 | Emergency (ER) | payer SELFPAY ==
[~2021-03-13] VITALS: Ht 162.5 cm; Wt 90.2 kg
[~2021-03-13 12:03] MED LIST changes: +ONDA4TAB11 PO; -SULF1TAB35 PO; +SULF1TAB38 PO
[2021-03-13] MEDS ORDERED: NS IV 1000 ML 1,000 ML IV STA (12:18)
[2021-03-13] MEDS ORDERED: KETOROLAC 30 MG/ML VIAL IVP STA (12:18)
--- NOTE | 2021-03-13 12:18 | ED Back Pain ---
General Chief Complaint: Back Problems Stated Complaint: LWR RT BACK PAIN History of Present Illness Date Seen by Provider: Mar 13, 2021 Time Seen by Provider: 12:16 Initial Comments 40-year-old female presents with right flank pain and dysuria. She reports is been going on for about a week. The flank pain is been getting worse. She noticed a little blood in her urine. She did does have a history of kidney stones. She denies any fevers chills nausea or vomiting. Allergies and Home Medications Allergies Coded Allergies: No Known Drug Allergies (Unverified , 03/24/19) Patient Home Medication List Home Medication List Reviewed: Yes Naproxen (Naprosyn) 500 Mg Tablet, 500 MG PO BID Prescribed by: SHANTANU MACIAS on 03/23/20 0916 Ondansetron (Ondansetron Odt) 4 Mg Tab.rapdis, 4 MG PO TID Prescribed by: SHANTANU MACIAS on 09/07/20 1059 Prednisone (Prednisone) 20 Mg Tab, 40 MG PO DAILY Prescribed by: ALBERT LOWRY on 03/28/19 1451 Sulfamethoxazole/Trimethoprim (Bactrim Ds Tablet) 1 Each Tablet, 1 EACH PO BID Prescribed by: LUCITA CANDELARIA on 11/23/19 1846 Review of Systems Constitutional: No chills, No fever Respiratory: no symptoms reported Cardiovascular: no symptoms reported Gastrointestinal: no symptoms reported Genitourinary: see HPI, dysuria Musculoskeletal: back pain (rt flank) Skin: no symptoms reported Past Mdbhwlv-Tkrcmi-Giiepq Hx Seasonal Allergies Seasonal Allergies: No Past Medical History Surgeries: Yes Tubal Ligation Respiratory: No Cardiac: No Neurological: No 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 oz. kg; 35.00 BMI Method: General Appearance: No Apparent Distress, WD/WN Cardiovascular: Regular Rate, Rhythm, No Edema Respiratory: Lungs Clear, Normal Breath Sounds, No Accessory Muscle Use Gastrointestinal: Non Tender, Soft Back: CVA Tenderness (R) Extremity: Normal Capillary Refill, Normal Inspection, Normal Range of Motion Neurologic/Psychiatric: Alert, Oriented x3, No Motor/Sensory Deficits, Normal M ood/Affect, plan checker II-XII Norm as Tested Skin: Normal Color, Warm/Dry Progress/Results/Core Measures Results/Orders Lab Results Laboratory Tests Test 03/13/21 12:19 Range/Units Urine Color YELLOW Urine Clarity CLOUDY Urine pH 5.5 5-9 Urine Specific [place] >=1.030 1.016-1.022 Urine Protein NEGATIVE NEGATIVE Urine Glucose (UA) NEGATIVE NEGATIVE Urine Ketones NEGATIVE NEGATIVE Urine Nitrite NEGATIVE NEGATIVE Urine Bilirubin NEGATIVE NEGATIVE Urine Urobilinogen 0.2 < = 1.0 MG/DL Urine Leukocyte Esterase 1+ H NEGATIVE Urine RBC (Auto) 1+ H NEGATIVE Urine RBC RARE /HPF Urine WBC 10-25 H /HPF Urine Squamous Epithelial Cells 2-5 /HPF Urine Crystals NONE /LPF Urine Bacteria MODERATE H /HPF Urine Casts NONE /LPF Urine Mucus SMALL H /LPF Urine Culture Indicated YES My Orders Orders - LUCITA CANDELARIA DO Ct Abdomen/Pelvis Wo (03/13/21 12:18) Ed Iv/Invasive Line Start (03/13/21 12:18) Ua Culture If Indicated (03/13/21 12:18) Urine Bedside (03/13/21 12:18) Ketorolac Injection (Toradol Injection) (03/13/21 12:18) Ns Iv 1000 Ml (Sodium Chloride 0.9%) (03/13/21 12:18) Urine Culture (03/13/21 12:19) Vital Signs/I&O 03/13/21 12:26 Temp 36.5 Pulse 81 Resp 16 B/P (MAP) 127/88 (101) Pulse Ox 98 O2 Delivery Room Air Progress Progress Note : Progress Note Patient with a urinary tract infection with no signs of kidney stone. I will treat her with Bactrim. Patient stable and discharged home for symptoms are not improving over the next week she is to follow-up with her primary care provider Diagnostic Imaging Diagonstic Imaging: CT Plain Films/CT/US/NM/MRI: abdomen Comments CT abdomen and pelvis without contrast. TECHNIQUE: Multiple contiguous axial images were obtained through the abdomen and pelvis without the use of intravenous contrast. All CT scans use one or more of the following dose optimizing techniques: automated exposure control, MA and/or KvP adjustment based on patient size and exam type or iterative reconstruction. HISTORY: Kidney stone. COMPARISON: None available. FINDINGS: Lung bases: The lung bases are clear. Solid organs: The liver is normal. Multiple layering hyperdense stones within the gallbladder. There is no biliary ductal dilation. Pancreas is normal. Spleen is normal. Adrenal glands are normal. The kidneys are normal without visualized calculus or hydronephrosis. Bowel: The stomach and small bowel are normal without obstruction. There is scattered colonic diverticulosis. The appendix is normal. Peritoneum: There is no intraperitoneal free fluid or free air. No suspicious lymphadenopathy. Vasculature: Normal without aneurysm. Musculoskeletal: Degenerative changes of the spine without suspicious osseous lesion or compression fracture. Pelvis: There is a small subserosal uterine fibroid. The uterus and adnexa are otherwise unremarkable. The urinary bladder is normal. IMPRESSION: 1. No visualized renal calculus or hydronephrosis. 2. Colonic diverticulosis without findings of diverticulitis. 3. Cholelithiasis. Reviewed: Reviewed by Me, Reviewed/Discussed Departure Impression Primary Impression: Acute cystitis Qualified Codes: N30.01 - Acute cystitis with hematuria Disposition: HOME, SELF-CARE Condition: Stable Departure-Patient Inst. Referrals: NO,LOCAL PHYSICIAN (PCP/Family) Primary Care Physician Patient Instructions: Urinary Tract Infections in Adults Add. Discharge Instructions: Follow-up with your primary care provider in 1 week if symptoms or not improved All discharge instructions reviewed with patient and/or family. Voiced understanding. Scripts Sulfamethoxazole/Trimethoprim (Bactrim Ds Tablet) 1 Each Tablet 1 EACH PO BID, #10 TAB Prov: LUCITA CANDELARIA DO 03/13/21 LUCITA CANDELARIA DO Mar 13, 2021 12:18
[2021-03-13 12:27] LABS: BILIRUBIN,URINE NEGATIVE (NEGATIVE); CLARITY,URINE CLOUDY; COLOR,URINE YELLOW; GLUCOSE, URINE (UA) NEGATIVE (NEGATIVE); KETONES,URINE NEGATIVE (NEGATIVE); LEUKOCYTE ESTERASE ,URINE 1+ (NEGATIVE); NITRITE,URINE NEGATIVE (NEGATIVE); PH,URINE 5.5 (5-9); PROTEIN,URINE NEGATIVE (NEGATIVE)
[2021-03-13 12:37] LABS: BACTERIA,URINE MODERATE /HPF; RBC,URINE RARE /HPF
--- NOTE | 2021-03-13 12:51 | Diagnostic Imaging Report ---
EXAMINATION: CT abdomen and pelvis without contrast. TECHNIQUE: Multiple contiguous axial images were obtained through the abdomen and pelvis without the use of intravenous contrast. All CT scans use one or more of the following dose optimizing techniques: automated exposure control, MA and/or KvP adjustment based on patient size and exam type or iterative reconstruction. HISTORY: Kidney stone. COMPARISON: None available. FINDINGS: Lung bases: The lung bases are clear. Solid organs: The liver is normal. Multiple layering hyperdense stones within the gallbladder. There is no biliary ductal dilation. Pancreas is normal. Spleen is normal. Adrenal glands are normal. The kidneys are normal without visualized calculus or hydronephrosis. Bowel: The stomach and small bowel are normal without obstruction. There is scattered colonic diverticulosis. The appendix is normal. Peritoneum: There is no intraperitoneal free fluid or free air. No suspicious lymphadenopathy. Vasculature: Normal without aneurysm. Musculoskeletal: Degenerative changes of the spine without suspicious osseous lesion or compression fracture. Pelvis: There is a small subserosal uterine fibroid. The uterus and adnexa are otherwise unremarkable. The urinary bladder is normal. IMPRESSION: 1. No visualized renal calculus or hydronephrosis. 2. Colonic diverticulosis without findings of diverticulitis. 3. Cholelithiasis. Dictated by: Dictated on workstation # [id number]
[2021-03-13] MEDS ORDERED: SULF1TAB38 PO (12:58)
[2021-03-13 13:32] VITALS: BP 125/88
== END 2021-03-13 13:29 | disposition home or self-care (01) ==
LOC: EDUNIT# 12:03 → ER FS 12:04
DX: N30.00 Acute cystitis without hematuria (principal); Z79.52 Long term (current) use of systemic steroids
CPT/HCPCS: 74176; 81000; 84703; 87088

== ENCOUNTER 2021-12-18 19:16 | Emergency (ER) | payer SELFPAY ==
[~2021-12-18] VITALS: Ht 162.5 cm; Wt 86.0 kg
--- NOTE | 2021-12-18 19:22 | ED General ---
General Stated Complaint: CP History of Present Illness Date Seen by Provider: Dec 18, 2021 Time Seen by Provider: 19:21 Initial Comments 41-year-old female with no PMH, is brought in by EMS with complaints of first- time onset of central chest pain which began at 10 AM today morning, with epigastric pain. Patient has associated symptoms of vomiting, 4 episodes today. Denies fever, shortness of breath, diarrhea, constipation, palpitations, headache, dizziness. Patient's was diagnosed with COVID yesterday. Allergies and Home Medications Allergies Coded Allergies: No Known Drug Allergies (Unverified , 03/24/19) Patient Home Medication List Home Medication List Reviewed: Yes Naproxen (Naprosyn) 500 Mg Tablet, 500 MG PO BID Prescribed by: SHANTANU MACIAS on 03/23/20 0916 Ondansetron (Ondansetron Odt) 4 Mg Tab.rapdis, 4 MG PO TID Prescribed by: SHANTANU MACIAS on 09/07/20 1059 Prednisone (Prednisone) 20 Mg Tab, 40 MG PO DAILY Prescribed by: ALBERT LOWRY on 03/28/19 1451 Sulfamethoxazole/Trimethoprim (Bactrim Ds Tablet) 1 Each Tablet, 1 EACH PO BID Prescribed by: LUCITA CANDELARIA on 11/23/19 1846 Sulfamethoxazole/Trimethoprim (Bactrim Ds Tablet) 1 Each Tablet, 1 EACH PO BID Prescribed by: LUCITA CANDELARIA on 03/13/21 1258 Review of Systems Review of Systems Constitutional: no symptoms reported EENTM: no symptoms reported Respiratory: no symptoms reported Cardiovascular: chest pain Gastrointestinal: abdominal pain, nausea, vomiting Genitourinary: no symptoms reported Musculoskeletal: no symptoms reported Skin: no symptoms reported Psychiatric/Neurological: No Symptoms Reported Hematologic/Lymphatic: No Symptoms Reported Immunological/Allergic: no symptoms reported Past Uijzjdf-Toayms-Vkjhfw Hx Immunizations Up To Date First/Initial COVID19 Vaccinat: Not currently vaccinated Seasonal Allergies Seasonal Allergies: No Past Medical History Surgery/Hospitalization HX: Hx: Kidney Stones Surgeries: Yes Tubal Ligation Respiratory: No Cardiac: No Neurological: No 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 oz. kg; 34.00 BMI Method: General Appearance: Mild Distress HEENT: PERRL/EOMI, Normal ENT Inspection, Pharynx Normal Neck: Full Range of Motion, Normal Inspection, Non Tender, Supple Respiratory: Chest Non Tender, Lungs Clear, Normal Breath Sounds, No Respiratory Distress, Other (point tenderness of chest) Cardiovascular: Regular Rate, Rhythm, No Edema, Other (point tenderness on 10th-12th left costochondral junction) Gastrointestinal: Normal Bowel Sounds, Soft, Tenderness (tenderness in the epigastric area) Back: Normal Inspection, No CVA Tenderness Neurologic/Psychiatric: Alert, Oriented x3, No Motor/Sensory Deficits Progress/Results/Core Measures Suspected Sepsis SIRS Temperature: Pulse: Respiratory Rate: Laboratory Tests 12/18/21 19:20: White Blood Count 11.9H Blood Pressure / Mean: Laboratory Tests 12/18/21 19:20: Creatinine 0.79, INR Comment 1.0, Platelet Count 321, Total Bilirubin 0.2 Results/Orders Lab Results Laboratory Tests Test 12/18/21 19:20 12/18/21 19:27 Range/Units White Blood Count 11.9 H 4.3-11.0 10^3/uL Red Blood Count 4.06 3.80-5.11 10^6/uL Hemoglobin 11.7 11.5-16.0 g/dL Hematocrit 35 35-52 % Mean Corpuscular Volume 86 80-99 fL Mean Corpuscular Hemoglobin 29 25-34 pg Mean Corpuscular Hemoglobin Concent 33 32-36 g/dL Red Cell Distribution Width 12.5 10.0-14.5 % Platelet Count 321 130-400 10^3/uL Mean Platelet Volume 9.8 9.0-12.2 fL Immature Granulocyte % (Auto) 0 % Neutrophils (%) (Auto) 70 42-75 % Lymphocytes (%) (Auto) 17 12-44 % Monocytes (%) (Auto) 10 0-12 % Eosinophils (%) (Auto) 2 0-10 % Basophils (%) (Auto) 1 0-10 % Neutrophils # (Auto) 8.3 H 1.8-7.8 10^3/uL Lymphocytes # (Auto) 2.0 1.0-4.0 10^3/uL Monocytes # (Auto) 1.2 H 0.0-1.0 10^3/uL Eosinophils # (Auto) 0.2 0.0-0.3 10^3/uL Basophils # (Auto) 0.1 0.0-0.1 10^3/uL Immature Granulocyte # (Auto) 0.0 0.0-0.1 10^3/uL Prothrombin Time 13.0 12.2-14.7 SEC INR Comment 1.0 0.8-1.4 Activated Partial Thromboplast Time 25 24-35 SEC D-Dimer 0.32 0.00-0.49 UG/ML Sodium Level 139 135-145 MMOL/L Potassium Level 3.8 3.6-5.0 MMOL/L Chloride Level 105 98-107 MMOL/L Carbon Dioxide Level 25 21-32 MMOL/L Anion Gap 9 5-14 MMOL/L Blood Urea Nitrogen 12 7-18 MG/DL Creatinine 0.79 0.60-1.30 MG/DL Estimat Glomerular Filtration Rate 96 BUN/Creatinine Ratio 15 Glucose Level 114 H 70-105 MG/DL Calcium Level 9.1 8.5-10.1 MG/DL Corrected Calcium 9.0 8.5-10.1 MG/DL Magnesium Level 1.9 1.6-2.4 MG/DL Total Bilirubin 0.2 0.1-1.0 MG/DL Aspartate Amino Transf (AST/SGOT) 13 5-34 U/L Alanine Aminotransferase (ALT/SGPT) 9 0-55 U/L Alkaline Phosphatase 64 40-136 U/L Troponin I < 0.30 <0.30 NG/ML Total Protein 7.0 6.4-8.2 GM/DL Albumin 4.1 3.2-4.5 GM/DL Lipase 33 8-78 U/L Urine Color YELLOW Urine Clarity CLOUDY Urine pH 7.0 5-9 Urine Specific [place] 1.010 L 1.016-1.022 Urine Protein NEGATIVE NEGATIVE Urine Glucose (UA) NEGATIVE NEGATIVE Urine Ketones NEGATIVE NEGATIVE Urine Nitrite NEGATIVE NEGATIVE Urine Bilirubin NEGATIVE NEGATIVE Urine Urobilinogen 0.2 < = 1.0 MG/DL Urine Leukocyte Esterase 1+ H NEGATIVE Urine RBC (Auto) TRACE-I H NEGATIVE Urine RBC NONE /HPF Urine WBC RARE /HPF Urine Squamous Epithelial Cells 2-5 /HPF Urine Crystals PRESENT H /LPF Urine Amorphous Sediment MOD RUBEN PHOSPHATE H /LPF Urine Bacteria FEW H /HPF Urine Casts NONE /LPF Urine Mucus MODERATE H /LPF Urine Culture Indicated NO Urine Test NEGATIVE NEGATIVE Urine Opiates Screen NEGATIVE NEGATIVE Urine Oxycodone Screen NEGATIVE NEGATIVE Urine Methadone Screen NEGATIVE NEGATIVE Urine Propoxyphene Screen NEGATIVE NEGATIVE Urine Barbiturates Screen NEGATIVE NEGATIVE Ur Tricyclic Antidepressants Screen NEGATIVE NEGATIVE Urine Phencyclidine Screen NEGATIVE NEGATIVE Urine Amphetamines Screen NEGATIVE NEGATIVE Urine Methamphetamines Screen NEGATIVE NEGATIVE Urine Benzodiazepines Screen NEGATIVE NEGATIVE Urine Cocaine Screen NEGATIVE NEGATIVE Urine Cannabinoids Screen NEGATIVE NEGATIVE Influenza Type A (RT-PCR) Not Detected Not Detecte Influenza Type B (RT-PCR) Not Detected Not Detecte SARS-CoV-2 RNA (RT-PCR) Not Detected Not Detecte My Orders Orders - DONNA WYATT MD Covid 19 Inhouse Test (12/18/21 19:22) Influenza A And B By Pcr (12/18/21 19:22) Cbc With Automated Diff (12/18/21 19:23) Comprehensive Metabolic Panel (12/18/21 19:23) Fibrin Degradation Products (12/18/21 19:23) Drug Screen Stat (Urine) (12/18/21 19:23) Hcg,Qualitative Urine (12/18/21 19:23) Lipase (12/18/21 19:23) Magnesium (12/18/21 19:23) Protime With Inr (12/18/21 19:23) Partial Thromboplastin Time (12/18/21 19:23) Ua Culture If Indicated (12/18/21 19:23) Chest 1 View Ap/Pa Only (12/18/21 19:23) Troponin I Fs (12/18/21 19:23) Ct Abdomen/Pelvis W (12/18/21 19:24) Iohexol Injection (Omnipaque 350 Mg/Ml 1 (12/18/21 20:00) Received Contrast (Hold Metformin- Contr (12/18/21 20:00) Ns (Ivpb) (Sodium Chloride 0.9% Ivpb Bag (12/18/21 20:00) Ketorolac Injection (Toradol Injection) (12/18/21 21:00) Amoxicillin/Clavulanate Tablet (Augmenti (12/18/21 21:35) Rx-Oxycodone/Apap 5-325 Mg (Rx-Percocet (12/18/21 21:45) Medications Given in ED Current Medications Medications Dose Ordered Sig/Radha Route Start Time Stop Time Status Last Admin Dose Admin Iohexol 100 ml ONCE ONCE IV 12/18/21 20:00 12/18/21 20:01 DC 12/18/21 20:06 100 ML Ketorolac Tromethamine 15 mg ONCE ONCE IVP 12/18/21 21:00 12/18/21 21:01 DC 12/18/21 21:09 15 MG Sodium Chloride 100 ml ONCE ONCE IV 12/18/21 20:00 12/18/21 20:01 DC 12/18/21 20:06 100 ML Vital Signs/I&O 12/18/21 12/18/21 19:16 21:09 Temp 36.9 36.9 Pulse 70 Resp 14 B/P (MAP) 141/58 (85) Pulse Ox 98 O2 Delivery Room Air Capillary Refill : Progress Note : Progress Note 1. ACS RULE OUT: - CXR: normal - Troponin/ EKG: non-ischemic - D-dimer/ Coag panel: normal - COVID Test: negative 2. ACUTE CHOLECYSTITIS & MILD DIVERTICULITIS: - CT ABD & PELVIS: see report - CBC/ CMP: WBC is 11.9 with a left shift - Discussed with surgery consult, Dr. Acosta. Advised patient to have a clear liquid diet for the next 2 to 3 days, no dairy, pain control, Augmentin, and follow-up in surgery clinic on Saturday. Advised patient to call Dr. Acosta's office for appointment, or go as a walk-in and wait at 1:30 PM at the clinic. - Advised Percocet for severe pain and dispensed from ER, and Naproxen or Ibuprofen for mild to moderate pain. - Zofran prescription -The patient was seen in the ED, and treated appropriately to presentation at a specific point in time. Patient is informed that there is a possibility that disease and illness can evolve and change in acuity rapidly or slowly after patient is discharged from the ER. Precautionary advice given to the patient for immediate return to ER if symptoms worsen or do not resolve, and to seek emergency care sooner rather than later. Pt also advised on the importance of PCP follow up and compliance with management and follow up plan with PCP and/or specialist, as this is part of the management plan. Pt verbally expressed understanding. 3. ACUTE CYSTITIS WITH HEMATURIA: - UA: Positive for LE, bact. WBC - UDS is negative - Augmentin - Adequate hydration advised Diagnostic Imaging Diagonstic Imaging: Xray, CT Plain Films/CT/US/NM/MRI: chest, abdomen Comments [facility], [place] NAME: CORBY MARKS [facility] REC#: [id number] PT STATUS: REG ER : 1980 PHYSICIAN: DONNA WYATT MD ADMIT DATE: 12/18/21/ER FS Draft Date of Exam:12/18/21 CT ABDOMEN/PELVIS W PROCEDURE: CT abdomen and pelvis with contrast. TECHNIQUE: Multiple contiguous axial images were obtained through the abdomen and pelvis after administration of intravenous contrast. Auto Exposure Controls were utilized during the CT exam to meet ALARA standards for radiation dose reduction. All CT scans use one or more of the following dose optimizing techniques: automated exposure control, MA and/or KvP adjustment based on patient size and exam type or iterative reconstruction. INDICATION: Epigastric pain COMPARISON: 03/13/2021 There is a subcentimeter low-density focus in the posterior dome of the right lobe of the liver which could represent a cyst. Otherwise, no focal hepatic abnormality is identified. There is a probable 1.2 cm stone in the gallbladder neck however no gallbladder wall thickening or pericholecystic fluid is identified. There is no evidence of pancreatic, adrenal gland, splenic or renal abnormality. There is mild edema and/or inflammation surrounding the descending colon may be related to very mild diverticulitis. No abscess is identified. Unopacified bladder is unremarkable. There is low-density in the endometrium which may be related to proliferative phase of cycle. No pathologically enlarged adenopathy is identified. Degenerative findings are noted in the lower thoracic spine. IMPRESSION: Probable stone in the gallbladder neck without secondary sign of acute cholecystitis. Focal inflammation involves the descending colon, likely related to mild diverticulitis. Dictated on workstation # [id number] Dict: 12/18/212025 Trans: 12/18/212032 [facility] [id number] Interpreted by: SHYLA HILTON MD Electronically signed by: Departure Impression Primary Impression: Acute cholecystitis Additional Impressions: Acute diverticulitis Acute cystitis with hematuria Disposition: HOME, SELF-CARE Condition: Stable Departure-Patient Inst. Referrals: QUANG ACOSTA,LOCAL PHYSICIAN (PCP) Primary Care Physician Patient Instructions: Diverticulitis (DC), Gallstones, Gallbladder Diet, Urinary Tract Infection, Adult (DC) Add. Discharge Instructions: - Advised patient to have a clear liquid diet for the next 2 to 3 days, no dairy, pain control, Augmentin twice a day for 7 days, and follow-up in surgery clinic on Saturday. Advised patient to call Dr. Acosta's office for appointment, or go as a walk-in and wait at 1:30 PM at the clinic. - Advised Percocet for severe pain and dispensed from ER, and Naproxen or Ibuprofen for mild to moderate pain. - Return to ER for worsening pain DONNA WYATT MD Dec 18, 2021 19:22
[2021-12-18 19:37] LABS: BASOPHILS # (AUTO) 0.1 10^3/uL (0.0-0.1); BASOPHILS % (AUTO) 1 % (0-10); EOSINOPHILS # (AUTO) 0.2 10^3/uL (0.0-0.3); EOSINOPHILS % (AUTO) 2 % (0-10); HEMATOCRIT 35 % (35-52); HEMOGLOBIN 11.7 g/dL (11.5-16.0); LYMPHOCYTES % (AUTO) 17 % (12-44); MEAN CORPUSCULAR HEMOGLOBIN 29 pg (25-34); MEAN CORPUSCULAR HGB CONC 33 g/dL (32-36); MEAN CORPUSCULAR VOLUME 86 fL (80-99); MEAN PLATELET VOLUME 9.8 fL (9.0-12.2); MONOCYTES # (AUTO) 1.2 10^3/uL (0.0-1.0); MONOCYTES % (AUTO) 10 % (0-12); NEUTROPHILS # (AUTO) 8.3 10^3/uL (1.8-7.8); NEUTROPHILS % (AUTO) 70 % (42-75); PLATELET COUNT 321 10^3/uL (130-400); WHITE BLOOD COUNT 11.9 10^3/uL (4.3-11.0)
[2021-12-18 19:51] LABS: BILIRUBIN,URINE NEGATIVE (NEGATIVE); CLARITY,URINE CLOUDY; COLOR,URINE YELLOW; GLUCOSE, URINE (UA) NEGATIVE (NEGATIVE); KETONES,URINE NEGATIVE (NEGATIVE); LEUKOCYTE ESTERASE ,URINE 1+ (NEGATIVE); NITRITE,URINE NEGATIVE (NEGATIVE); PROTEIN,URINE NEGATIVE (NEGATIVE)
[2021-12-18 19:52] LABS: HCG,QUALITATIVE URINE NEGATIVE (NEGATIVE)
[2021-12-18] MEDS ORDERED: NS 100 ML (IVPB) BAG IV ONE (20:00)
[2021-12-18] MEDS ORDERED: IOHEXOL 350 MG/ML 100 ML (OMNIPAQUE 350) VIAL IV ONE (20:00)
[2021-12-18] MEDS ORDERED: HOLD METFORMIN - RECEIVED CONTRAST 20 ML VIAL IV SCH (20:00)
[2021-12-18 20:03] LABS: ALANINE AMINOTRANSFERASE 9 U/L (0-55); ALKALINE PHOSPHATASE 64 U/L (40-136); BILIRUBIN,TOTAL 0.2 MG/DL (0.1-1.0); BUN/CREATININE RATIO 15; CALCIUM 9.1 MG/DL (8.5-10.1); CARBON DIOXIDE 25 MMOL/L (21-32); CHLORIDE 105 MMOL/L (98-107); CREATININE SERUM 0.79 MG/DL (0.60-1.30); GFR ESTIMATED 96; GLUCOSE 114 MG/DL (70-105); MAGNESIUM 1.9 MG/DL (1.6-2.4); POTASSIUM 3.8 MMOL/L (3.6-5.0); SODIUM 139 MMOL/L (135-145)
[2021-12-18 20:04] LABS: ALBUMIN 4.1 GM/DL (3.2-4.5); LIPASE 33 U/L (8-78)
[2021-12-18 20:05] LABS: AMPHETAMINE SCREEN, URINE NEGATIVE (NEGATIVE); BARBITURATE SCREEN URINE NEGATIVE (NEGATIVE); BENZODIAZEPINES SCREEN URINE NEGATIVE (NEGATIVE); CANNABINOID SCREEN, URINE NEGATIVE (NEGATIVE); COCAINE SCREEN URINE NEGATIVE (NEGATIVE); METHADONE STAT NEGATIVE (NEGATIVE); OPIATE SCREEN URINE NEGATIVE (NEGATIVE); OXYCODONE STAT NEGATIVE (NEGATIVE); PROPOXYPHENE STAT NEGATIVE (NEGATIVE); TRICYCLIC ANTIDEPRESSANTS SCRE NEGATIVE (NEGATIVE)
[2021-12-18 20:09] LABS: AMORPHOUS SEDIMENT,UR MOD AMOR PHOSPHATE /LPF; BACTERIA,URINE FEW /HPF; WBC,URINE RARE /HPF
[2021-12-18 20:20] LABS: FIBRIN DEGRADATION PRODUCTS 0.32 UG/ML (0.00-0.49)
--- NOTE | 2021-12-18 20:33 | Diagnostic Imaging Report ---
INDICATION: Chest pain AP view of chest is obtained with comparison made to study of 03/23/2020. FINDINGS: Heart size and pulmonary vascularity are within normal limits, and the lungs are clear, bilaterally. IMPRESSION: Unremarkable chest. Dictated by: Dictated on workstation # [id number]
--- NOTE | 2021-12-18 20:33 | Diagnostic Imaging Report ---
PROCEDURE: CT abdomen and pelvis with contrast. TECHNIQUE: Multiple contiguous axial images were obtained through the abdomen and pelvis after administration of intravenous contrast. Auto Exposure Controls were utilized during the CT exam to meet ALARA standards for radiation dose reduction. All CT scans use one or more of the following dose optimizing techniques: automated exposure control, MA and/or KvP adjustment based on patient size and exam type or iterative reconstruction. INDICATION: Epigastric pain COMPARISON: 03/13/2021 There is a subcentimeter low-density focus in the posterior dome of the right lobe of the liver which could represent a cyst. Otherwise, no focal hepatic abnormality is identified. There is a probable 1.2 cm stone in the gallbladder neck however no gallbladder wall thickening or pericholecystic fluid is identified. There is no evidence of pancreatic, adrenal gland, splenic or renal abnormality. There is mild edema and/or inflammation surrounding the descending colon may be related to very mild diverticulitis. No abscess is identified. Unopacified bladder is unremarkable. There is low-density in the endometrium which may be related to proliferative phase of cycle. No pathologically enlarged adenopathy is identified. Degenerative findings are noted in the lower thoracic spine. IMPRESSION: Probable stone in the gallbladder neck without secondary sign of acute cholecystitis. Focal inflammation involves the descending colon, likely related to mild diverticulitis. Dictated by: Dictated on workstation # [id number]
[2021-12-18] MEDS ORDERED: KETOROLAC 30 MG/ML VIAL IVP ONE (21:00)
[2021-12-18] MEDS ORDERED: AUGMENTIN 875 MG TAB (AMOXICILLIN/CLAVULANATE) PO STA (21:35)
[2021-12-18] MEDS ORDERED: RX-OXYCODONE/APAP 5-325 MG #4 TAB PK PO PRN (21:45)
[2021-12-18] MEDS ORDERED: ONDANSETRON 4 MG/2 ML (SDV) Z0FRAN IVP STA (21:58)
[2021-12-18] MEDS ORDERED: AMOX-355 PO (21:58)
[2021-12-18] MEDS ORDERED: ONDA4TAB11 PO (21:58)
[2021-12-18] MEDS ORDERED: AUGMENTIN 875 MG TAB (AMOXICILLIN/CLAVULANATE) ONE (22:05)
[2021-12-18 22:10] VITALS: BP 122/71
== END 2021-12-18 22:10 | disposition home or self-care (01) ==
LOC: EDUNIT# 19:16 → ER FS 19:19
DX: K81.0 Acute cholecystitis (principal); K57.92 Diverticulitis of intestine, part unspecified, without perforation or abscess without bleeding; N30.01 Acute cystitis with hematuria; Z20.822 Contact with and (suspected) exposure to COVID-19; Z28.310 Unvaccinated for COVID-19
CPT/HCPCS: 36415; 71045; 74177; 80053; 80306; 81000; 83690; 83735; 84484; 84703; 85025; 85379; 85610; 85730; 87636; 93005; Q9967

== ENCOUNTER 2022-04-24 16:07 | Emergency (ER) | payer SELFPAY ==
[~2022-04-24 16:07] MED LIST changes: +AMOX-355 PO
--- NOTE | 2022-04-24 16:40 | ED General ---
General Stated Complaint: DIZZY,LIGHTHEADED Source of Information: Patient Exam Limitations: No Limitations History of Present Illness Date Seen by Provider: Apr 24, 2022 Time Seen by Provider: 16:30 Initial Comments 41-year-old female presents to the emergency department today for dizziness, lightheadedness. Symptoms started while she was at work. She states that she goes from sitting to standing she gets lightheaded. She had 3 separate episodes of this at work and was ultimately sent home. This prompted her to come here for evaluation. She states the last time this happened she was seen here and told it was her gallbladder. She is waiting till after the first of the year so her insurance kicks in before she gets this further evaluated. Record review shows that she had diverticulitis that was mild, treated with Augmentin. She also had a mild UTI. She did have a stone in the neck of her gallbladder without any evidence of acute cholecystitis. Currently she complains of some mild left lower quadrant abdominal pain. This is described as a burning sensation without radiation. No obvious aggravating or alleviating factors. She has no epigastric or right upper quadrant tenderness at this time. She denies any fevers chills nausea or vomiting. No changes in bowel or bladder habits. Normal menstrual cycles. She has had a tubal ligation. Allergies and Home Medications Allergies Coded Allergies: No Known Drug Allergies (Unverified , 03/24/19) Patient Home Medication List Home Medication List Reviewed: Yes Amoxicillin/Potassium Clav (Augmentin 500-125 Tablet) 500 Mg-125 Mg Tablet, 875 EACH PO BID Prescribed by: DONNA WYATT MD on 12/18/212157 Naproxen (Naprosyn) 500 Mg Tablet, 500 MG PO BID Prescribed by: SHANTANU MACIAS on 03/23/20 0916 Ondansetron (Ondansetron Odt) 4 Mg Tab.rapdis, 4 MG PO TID Prescribed by: SHANTANU MACIAS on 09/07/20 1059 Ondansetron (Ondansetron Odt) 4 Mg Tab.rapdis, 4 MG PO TID Prescribed by: DONNA WYATT MD on 12/18/212157 Prednisone (Prednisone) 20 Mg Tab, 40 MG PO DAILY Prescribed by: ALBERT LOWRY on 03/28/19 1451 Sulfamethoxazole/Trimethoprim (Bactrim Ds Tablet) 1 Each Tablet, 1 EACH PO BID Prescribed by: LUCITA CNADELARIA on 11/23/19 1846 Sulfamethoxazole/Trimethoprim (Bactrim Ds Tablet) 1 Each Tablet, 1 EACH PO BID Prescribed by: LUCITA CANDELARIA on 03/13/21 1258 Review of Systems Review of Systems Constitutional: other (Dizziness) EENTM: no symptoms reported Respiratory: no symptoms reported Cardiovascular: no symptoms reported Gastrointestinal: LLQ Genitourinary: no symptoms reported Musculoskeletal: no symptoms reported Skin: no symptoms reported Psychiatric/Neurological: No Symptoms Reported Hematologic/Lymphatic: No Symptoms Reported Immunological/Allergic: no symptoms reported Past Modqzhr-Exmyxt-Xzyery Hx Patient Social History Tobacco Use?: No Use of E-Cig and/or Vaping dev: No Substance use?: No Alcohol Use?: No Immunizations Up To Date First/Initial COVID19 Vaccinat: Not currently vaccinated Seasonal Allergies Seasonal Allergies: No Past Medical History Surgery/Hospitalization HX: Hx: Kidney Stones, HTN (non-medicated) Surgeries: Yes Tubal Ligation Respiratory: No Cardiac: No 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 oz. kg; 32.00 BMI Method: General Appearance: No Apparent Distress, WD/WN HEENT: PERRL/EOMI, TMs Normal, Normal ENT Inspection, Pharynx Normal Neck: Full Range of Motion, Non Tender Respiratory: Chest Non Tender, Lungs Clear, Normal Breath Sounds, No Accessory Muscle Use, No Respiratory Distress Cardiovascular: Regular Rate, Rhythm, No Edema Gastrointestinal: Normal Bowel Sounds, No Organomegaly, Soft, Tenderness (Te nderness palpation left lower quadrant without rebound or guarding. No mass organomegaly. No skin changes.) Extremity: Normal Capillary Refill, Normal Inspection, Normal Range of Motion, Non Tender Neurologic/Psychiatric: Alert, Oriented x3, Normal Mood/Affect Skin: Normal Color, Warm/Dry Lymphatic: No Adenopathy Progress/Results/Core Measures Suspected Sepsis SIRS Temperature: Pulse: Respiratory Rate: Laboratory Tests 04/24/22 16:41: White Blood Count 8.0 Blood Pressure / Mean: Laboratory Tests 04/24/22 16:41: Creatinine 0.76, Platelet Count 345, Total Bilirubin < 0.2 Results/Orders Lab Results Laboratory Tests Test 04/24/22 16:41 Range/Units White Blood Count 8.0 4.3-11.0 10^3/uL Red Blood Count 4.43 3.80-5.11 10^6/uL Hemoglobin 12.6 11.5-16.0 g/dL Hematocrit 38 35-52 % Mean Corpuscular Volume 86 80-99 fL Mean Corpuscular Hemoglobin 28 25-34 pg Mean Corpuscular Hemoglobin Concent 33 32-36 g/dL Red Cell Distribution Width 12.8 10.0-14.5 % Platelet Count 345 130-400 10^3/uL Mean Platelet Volume 9.7 9.0-12.2 fL Immature Granulocyte % (Auto) 0 % Neutrophils (%) (Auto) 60 42-75 % Lymphocytes (%) (Auto) 24 12-44 % Monocytes (%) (Auto) 11 0-12 % Eosinophils (%) (Auto) 4 0-10 % Basophils (%) (Auto) 1 0-10 % Neutrophils # (Auto) 4.8 1.8-7.8 10^3/uL Lymphocytes # (Auto) 1.9 1.0-4.0 10^3/uL Monocytes # (Auto) 0.9 0.0-1.0 10^3/uL Eosinophils # (Auto) 0.3 0.0-0.3 10^3/uL Basophils # (Auto) 0.1 0.0-0.1 10^3/uL Immature Granulocyte # (Auto) 0.0 0.0-0.1 10^3/uL Sodium Level 141 135-145 MMOL/L Potassium Level 4.2 3.6-5.0 MMOL/L Chloride Level 107 98-107 MMOL/L Carbon Dioxide Level 25 21-32 MMOL/L Anion Gap 9 5-14 MMOL/L Blood Urea Nitrogen 10 7-18 MG/DL Creatinine 0.76 0.60-1.30 MG/DL Estimat Glomerular Filtration Rate 100 BUN/Creatinine Ratio 13 Glucose Level 106 H 70-105 MG/DL Calcium Level 8.9 8.5-10.1 MG/DL Corrected Calcium 9.1 8.5-10.1 MG/DL Total Bilirubin < 0.2 0.1-1.0 MG/DL Aspartate Amino Transf (AST/SGOT) 12 5-34 U/L Alanine Aminotransferase (ALT/SGPT) 10 0-55 U/L Alkaline Phosphatase 66 40-136 U/L Total Protein 6.7 6.4-8.2 GM/DL Albumin 3.8 3.2-4.5 GM/DL My Orders Orders - AMANDANICHELLE L DO Orthostatic Vital Signs (Adult (04/24/22 16:34) Comprehensive Metabolic Panel (04/24/22 16:34) Cbc With Automated Diff (04/24/22 16:34) Ekg Tracing (04/24/22 16:34) Vital Signs/I&O 04/24/22 04/24/22 16:14 17:03 Temp 35.8 Pulse 88 80 92 94 Resp 16 B/P (MAP) 126/75 (92) 107/61 (76) 121/66 (84) 116/68 (84) Pulse Ox 98 O2 Delivery Room Air Capillary Refill : ECG EKG : Comment Sinus rhythm with left axis deviation. Normal intervals. Right bundle branch block. No ST or T wave abnormalities. No ectopy. No STEMI. Departure Communication (Admissions) Patient is hemodynamically stable. She has very mild left lower quadrant abdominal pain. Last time she was here CT scan showed mild diverticulitis and I suspect the same at this point. She does have a known gallstone, no right upper quadrant tenderness epigastric tenderness. She is afebrile and nontoxic with normal white blood cell count. I believe a trial of antibiotics is warranted at this time as an outpatient. She is comfortable [place] current plan of care. She is discharged home with strict return precautions. She does have general surgery follow-up after the first of the year when she gets insurance Impression Primary Impression: Acute diverticulitis Disposition: HOME, SELF-CARE Condition: Stable Departure-Patient Inst. Referrals: NO,LOCAL PHYSICIAN (PCP/Family) Primary Care Physician Patient Instructions: Diverticulitis (DC) Add. Discharge Instructions: Take antibiotics as prescribed until gone. Maintain diet as discussed. Follow up with surgery as previously discussed. Return to ER if not improving in 48 hours or with severe pain. Scripts Metronidazole (Metronidazole) 500 Mg Tablet 500 MG PO TID for 7 Days, #21 TAB Prov: NICHELLE PATEL DO 04/24/22 Ciprofloxacin HCl (Ciprofloxacin HCl) 500 Mg Tablet 500 MG PO BID for 7 Days, #14 TAB Prov: NICHELLE PATEL DO 04/24/22 Work/School Note: Work Release Form Date Seen in the Emergency Department: Apr 24, 2022 Return to Work: Apr 25, 2022 Restrictions: No Restrictions NICHELLE PATEL DO Apr 24, 2022 16:40
[2022-04-24 16:52] LABS: BASOPHILS # (AUTO) 0.1 10^3/uL (0.0-0.1); BASOPHILS % (AUTO) 1 % (0-10); EOSINOPHILS # (AUTO) 0.3 10^3/uL (0.0-0.3); EOSINOPHILS % (AUTO) 4 % (0-10); HEMATOCRIT 38 % (35-52); HEMOGLOBIN 12.6 g/dL (11.5-16.0); LYMPHOCYTES # (AUTO) 1.9 10^3/uL (1.0-4.0); LYMPHOCYTES % (AUTO) 24 % (12-44); MEAN CORPUSCULAR HEMOGLOBIN 28 pg (25-34); MEAN CORPUSCULAR HGB CONC 33 g/dL (32-36); MEAN CORPUSCULAR VOLUME 86 fL (80-99); MEAN PLATELET VOLUME 9.7 fL (9.0-12.2); MONOCYTES # (AUTO) 0.9 10^3/uL (0.0-1.0); MONOCYTES % (AUTO) 11 % (0-12); NEUTROPHILS # (AUTO) 4.8 10^3/uL (1.8-7.8); NEUTROPHILS % (AUTO) 60 % (42-75); PLATELET COUNT 345 10^3/uL (130-400)
[2022-04-24 17:03] VITALS: BP_SYST 107; BP_SYST 116; BP_SYST 121; BP_DIAS 61; BP_DIAS 66; BP_DIAS 68
[2022-04-24 17:13] LABS: ALANINE AMINOTRANSFERASE 10 U/L (0-55); ALBUMIN 3.8 GM/DL (3.2-4.5); ALKALINE PHOSPHATASE 66 U/L (40-136); BILIRUBIN,TOTAL < 0.2 MG/DL (0.1-1.0); BUN/CREATININE RATIO 13; CALCIUM 8.9 MG/DL (8.5-10.1); CARBON DIOXIDE 25 MMOL/L (21-32); CHLORIDE 107 MMOL/L (98-107); CREATININE SERUM 0.76 MG/DL (0.60-1.30); GFR ESTIMATED 100; GLUCOSE 106 MG/DL (70-105); POTASSIUM 4.2 MMOL/L (3.6-5.0); SODIUM 141 MMOL/L (135-145); TOTAL PROTEIN 6.7 GM/DL (6.4-8.2)
[2022-04-24] MEDS ORDERED: METR-145 PO (17:20)
[2022-04-24] MEDS ORDERED: CIPR500T5 PO (17:20)
[2022-04-24 17:28] VITALS: BP 116/68
== END 2022-04-24 17:28 | disposition home or self-care (01) ==
LOC: EDUNIT# 16:07 → ER FS 16:08
DX: K57.92 Diverticulitis of intestine, part unspecified, without perforation or abscess without bleeding (principal); K80.20 Calculus of gallbladder without cholecystitis without obstruction; Z87.442 Personal history of urinary calculi; Z28.310 Unvaccinated for COVID-19
CPT/HCPCS: 36415; 80053; 85025; 93005

== ENCOUNTER 2022-05-22 04:48 | Emergency (ER) | payer SELFPAY ==
[~2022-05-22 04:48] MED LIST changes: +CIPR500T5 PO; +METR-145 PO
[2022-05-22] MEDS ORDERED: FAMOTIDINE 20MG/2ML IV (PEPCID) IV STA (04:55)
--- NOTE | 2022-05-22 04:55 | ED Chest Pain ---
General Stated Complaint: CP History of Present Illness Date Seen by Provider: May 22, 2022 Time Seen by Provider: 04:55 Initial Comments 42-year-old female presents with chest pain. Chest pain is in the substernal epigastric region. It started approximately 30 minutes prior to arrival. She feels like she has a hard time breathing. Patient reports she has had similar episodes in the past. She denies any fever, chills, cough. 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 She does continue to smoke. 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: No NTG SL DUBBING MACHINE OPERATOR: No (ALBERT LOWRY MD) Allergies and Home Medications Allergies Coded Allergies: No Known Drug Allergies (Unverified , 03/24/19) Patient Home Medication List Home Medication List Reviewed: Yes (LUCITA CANDELARIA DO) Home Medication List Reviewed: Yes (ALBERT LOWRY MD) Amoxicillin/Potassium Clav (Augmentin 500-125 Tablet) 500 Mg-125 Mg Tablet, 875 EACH PO BID Prescribed by: DONNA WYATT MD on 12/18/212157 Ciprofloxacin HCl (Ciprofloxacin HCl) 500 Mg Tablet, 500 MG PO BID Prescribed by: NICHELLE PATEL MD on 04/24/22 1720 Metronidazole (Metronidazole) 500 Mg Tablet, 500 MG PO TID Prescribed by: NICHELLE PATEL MD on 04/24/22 1720 Naproxen (Naprosyn) 500 Mg Tablet, 500 MG PO BID Prescribed by: SHANTANU MACIAS on 03/23/20 0916 Ondansetron (Ondansetron Odt) 4 Mg Tab.rapdis, 4 MG PO TID Prescribed by: SHANTANU MACIAS on 09/07/20 1059 Ondansetron (Ondansetron Odt) 4 Mg Tab.rapdis, 4 MG PO TID Prescribed by: DONNA WYATT MD on 12/18/212157 Prednisone (Prednisone) 20 Mg Tab, 40 MG PO DAILY Prescribed by: ALBERT OLWRY on 03/28/19 1451 Sulfamethoxazole/Trimethoprim (Bactrim Ds Tablet) 1 Each Tablet, 1 EACH PO BID Prescribed by: LUCITA CANDELARIA on 11/23/19 1846 Sulfamethoxazole/Trimethoprim (Bactrim Ds Tablet) 1 Each Tablet, 1 EACH PO BID Prescribed by: LUCITA CANDELARIA on 03/13/21 1258 Review of Systems Review of Systems Constitutional: No chills, No fever EENTM: No Symptoms Reported Respiratory: Denies Cough; Shortness of Air Cardiovascular: Chest Pain; Denies Edema, Denies Lightheadedness, Denies Palpitations Gastrointestinal: Denies Abdominal Pain, Denies Nausea, Denies Vomiting Genitourinary: No Symptoms Reported Musculoskeletal: no symptoms reported Skin: no symptoms reported Psychiatric/Neurological: No Symptoms Reported Endocrine: No Symptoms Reported Hematologic/Lymphatic: No Symptoms Reported (LUCITA CANDELARIA DO) Past Sgkauwx-Yavban-Xnosxn Hx Immunizations Up To Date First/Initial COVID19 Vaccinat: Not currently vaccinated Second COVID19 Vaccination Cale: Not currently vaccinated Third COVID19 Vaccination Date: Not currently vaccinated (LUCITA CANDELARIA DO) Seasonal Allergies Seasonal Allergies: No (LUCITA CANDELARIA DO) Past Medical History Surgery/Hospitalization HX: Hx: Kidney Stones, HTN (non-medicated); Surgeries: Yes Tubal Ligation Respiratory: No Cardiac: No 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 oz. 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 Skin: Normal Color, Warm/Dry (LUCITA CANDELARIA DO) Progress/Results/Core Measures Results/Orders Lab Results Laboratory Tests Test 05/22/22 04:58 05/22/22 06:53 Range/Units White Blood Count 7.5 4.3-11.0 10^3/uL Red Blood Count 4.40 3.80-5.11 10^6/uL Hemoglobin 12.7 11.5-16.0 g/dL Hematocrit 38 35-52 % Mean Corpuscular Volume 87 80-99 fL Mean Corpuscular Hemoglobin 29 25-34 pg Mean Corpuscular Hemoglobin Concent 33 32-36 g/dL Red Cell Distribution Width 12.8 10.0-14.5 % Platelet Count 343 130-400 10^3/uL Mean Platelet Volume 9.8 9.0-12.2 fL Immature Granulocyte % (Auto) 0 % Neutrophils (%) (Auto) 59 42-75 % Lymphocytes (%) (Auto) 23 12-44 % Monocytes (%) (Auto) 13 H 0-12 % Eosinophils (%) (Auto) 4 0-10 % Basophils (%) (Auto) 1 0-10 % Neutrophils # (Auto) 4.4 1.8-7.8 10^3/uL Lymphocytes # (Auto) 1.8 1.0-4.0 10^3/uL Monocytes # (Auto) 1.0 0.0-1.0 10^3/uL Eosinophils # (Auto) 0.3 0.0-0.3 10^3/uL Basophils # (Auto) 0.1 0.0-0.1 10^3/uL Immature Granulocyte # (Auto) 0.0 0.0-0.1 10^3/uL D-Dimer 0.34 0.00-0.49 UG/ML Sodium Level 137 135-145 MMOL/L Potassium Level 3.9 3.6-5.0 MMOL/L Chloride Level 104 98-107 MMOL/L Carbon Dioxide Level 25 21-32 MMOL/L Anion Gap 8 5-14 MMOL/L Blood Urea Nitrogen 10 7-18 MG/DL Creatinine 0.80 0.60-1.30 MG/DL Estimat Glomerular Filtration Rate 94 BUN/Creatinine Ratio 13 Glucose Level 117 H 70-105 MG/DL Calcium Level 8.9 8.5-10.1 MG/DL Corrected Calcium 9.0 8.5-10.1 MG/DL Magnesium Level 1.9 1.6-2.4 MG/DL Total Bilirubin 0.2 0.1-1.0 MG/DL Aspartate Amino Transf (AST/SGOT) 13 5-34 U/L Alanine Aminotransferase (ALT/SGPT) 11 0-55 U/L Alkaline Phosphatase 76 40-136 U/L Troponin I < 0.30 < 0.30 <0.30 NG/ML Pro-B-Type Natriuretic Peptide 21.3 <125.0 PG/ML Total Protein 6.9 6.4-8.2 GM/DL Albumin 3.9 3.2-4.5 GM/DL Lipase 25 8-78 U/L (ALBERT LOWRY MD) My Orders Orders - ALBERT LOWRY MD Ekg Tracing (05/22/22 04:53) (ALBERT LOWRY MD) Medications Given in ED Current Medications Medications Dose Ordered Sig/Radha Route Start Time Stop Time Status Last Admin Dose Admin Albuterol Sulfate 2.5 mg ONCE ONCE INH 05/22/22 06:00 05/22/22 06:01 DC 05/22/22 05:55 2.5 MG Aspirin 324 mg ONCE ONCE PO 05/22/22 05:00 05/22/22 05:01 DC 05/22/22 05:00 324 MG (ALBERT LOWRY MD) Vital Signs/I&O 05/22/22 05/22/22 04:49 06:31 Temp 37.2 Pulse 98 74 Resp 18 16 B/P (MAP) 125/65 (85) 131/66 Pulse Ox 100 99 O2 Delivery Room Air Room Air (ALBERT LOWRY MD) Progress Progress Note : Progress Note Patient symptoms slightly improved with albuterol. Patient no acute findings on EKG, negative troponin CBC and CMP. Patient care turned over to Dr. Lowry for repeat troponin. (LUCITA CANDELARIA DO) Progress Note : Progress Note I assumed care of the patient from Dr. Candelaria at 0700. Patient has cardiac risk factors of Hypertension and obesity. Her chest pain is atypical for cardiac symptoms. Her DEEPAK score is 0 which puts her at 5% risk at 14 days of: all-cause mortality, new or recurrent MA, or severe recurrent ischemia requiring urgent revascularization. 0733 repeat Troponin I <0.3 still on recheck. Reassured patient and advised to follow up or establish care with a primary care provider for additional testing but not seeing evidence of cardiac disease or heart attack on her testing this am. With her atypical pain, low DEEPAK score and 2 sets of negative enzymes this is less likely to be ACS and felt patient was safe to discharge to home and follow up as outpatient rather than be admitted for further serial testing. Stressed importance of follow up and return precautions for worsening or new symptoms. (ALBERT LOWRY MD) Initial ECG Impression Date: May 22, 2022 Initial ECG Impression Time: 04:53 Initial ECG Rhythm: Normal Sinus Initial ECG Intervals: AK (114) Initial ECG Intervals 114 Initial ECG Impression: Normal (LUCITA CANDELARIA DO) Diagnostic Imaging Diagonstic Imaging: Xray Plain Films/CT/US/NM/MRI: chest Comments [facility], [place] NAME: CORBY MARKS [facility] REC#: [id number] PT STATUS: REG ER : 1980 PHYSICIAN: LUCITA CANDELARIA DO ADMIT DATE: 05/22/22/ER FS Signed Date of Exam:05/22/22 CHEST PA/LAT (2 VIEW) EXAMINATION: Chest 2 view HISTORY: Chest pain. COMPARISON: None available. FINDINGS: Heart size and pulmonary vasculature are normal. The lungs are clear without consolidation, pleural effusion, or pneumothorax. The osseous structures are intact. IMPRESSION: 1. No acute radiographic abnormality in the chest. Dictated by: Dictated on workstation # [id number] Dict: 05/22/22 0558 Trans: 05/22/22 0715 [id number] Interpreted by: FRANCE NORMAN DO Electronically signed by: FRANCE NORMAN DO 05/22/22 0715 Reviewed: Reviewed by Me (ALBERT LOWRY MD) Departure Impression Primary Impression: Acute nonspecific chest pain with low risk of coronary artery disease Disposition: 01 HOME, SELF-CARE Condition: Stable Departure-Patient Inst. Decision time for Depature: 07:36 (ALBERT LOWRY MD) Referrals: NO,LOCAL PHYSICIAN (PCP) Primary Care Physician [facility] [place] Patient Instructions: Chest Pain, Adult ED Add. Discharge Instructions: Please follow-up with your primary care provider and consider cardiology consultation for further evaluation and outpatient stress test If you do not have a primary care provider you may call [facility] clinic at to see about establishing care with a primary care provider. Your tests did not show signs of cardiac disease or a heart attack as the cause of your symptoms today. Follow up with a primary care provider for continued work up and evaluation. If you have new or worsening symptoms return or be evaluated again LUCITA CANDELARIA DO May 22, 2022 04:55 ALBERT LOWRY MD May 22, 2022 07:36
[2022-05-22] MEDS ORDERED: ASPIRIN 81 MG CHEW (CHILDREN'S ASA) PO ONE (05:00)
[2022-05-22 05:09] LABS: BASOPHILS # (AUTO) 0.1 10^3/uL (0.0-0.1); BASOPHILS % (AUTO) 1 % (0-10); EOSINOPHILS # (AUTO) 0.3 10^3/uL (0.0-0.3); EOSINOPHILS % (AUTO) 4 % (0-10); HEMATOCRIT 38 % (35-52); HEMOGLOBIN 12.7 g/dL (11.5-16.0); LYMPHOCYTES # (AUTO) 1.8 10^3/uL (1.0-4.0); LYMPHOCYTES % (AUTO) 23 % (12-44); MEAN CORPUSCULAR HEMOGLOBIN 29 pg (25-34); MEAN CORPUSCULAR HGB CONC 33 g/dL (32-36); MEAN CORPUSCULAR VOLUME 87 fL (80-99); MEAN PLATELET VOLUME 9.8 fL (9.0-12.2); MONOCYTES % (AUTO) 13 % (0-12); NEUTROPHILS # (AUTO) 4.4 10^3/uL (1.8-7.8); NEUTROPHILS % (AUTO) 59 % (42-75); PLATELET COUNT 343 10^3/uL (130-400); WHITE BLOOD COUNT 7.5 10^3/uL (4.3-11.0)
[2022-05-22 05:39] LABS: BILIRUBIN,TOTAL 0.2 MG/DL (0.1-1.0); BUN/CREATININE RATIO 13; CALCIUM 8.9 MG/DL (8.5-10.1); CARBON DIOXIDE 25 MMOL/L (21-32); CHLORIDE 104 MMOL/L (98-107); GFR ESTIMATED 94; GLUCOSE 117 MG/DL (70-105); MAGNESIUM 1.9 MG/DL (1.6-2.4); POTASSIUM 3.9 MMOL/L (3.6-5.0); SODIUM 137 MMOL/L (135-145)
[2022-05-22 05:40] LABS: ALANINE AMINOTRANSFERASE 11 U/L (0-55); ALBUMIN 3.9 GM/DL (3.2-4.5); ALKALINE PHOSPHATASE 76 U/L (40-136); LIPASE 25 U/L (8-78); TOTAL PROTEIN 6.9 GM/DL (6.4-8.2)
[2022-05-22] MEDS ORDERED: RT-ALBUTEROL SULF 2.5 MG/3 ML PRE-MIX VIAL INH ONE (06:00)
--- NOTE | 2022-05-22 06:02 | Diagnostic Imaging Report ---
EXAMINATION: Chest 2 view HISTORY: Chest pain. COMPARISON: None available. FINDINGS: Heart size and pulmonary vasculature are normal. The lungs are clear without consolidation, pleural effusion, or pneumothorax. The osseous structures are intact. IMPRESSION: 1. No acute radiographic abnormality in the chest. Dictated by: Dictated on workstation # [id number]
[2022-05-22 06:31] VITALS: BP 131/66
== END 2022-05-22 07:40 | disposition home or self-care (01) ==
LOC: EDUNIT# 04:48 → ER FS 04:49
DX: R07.2 Precordial pain (principal); F17.210 Nicotine dependence, cigarettes, uncomplicated; Z28.310 Unvaccinated for COVID-19
CPT/HCPCS: 36415; 71046; 80053; 83690; 83735; 83880; 84484; 85025; 85379; 93005

== ENCOUNTER 2022-06-18 04:47 | Emergency (ER) | payer SELFPAY ==
[2022-06-18 04:53] VITALS: BP 128/65
[2022-06-18 05:12] LABS: BILIRUBIN,URINE NEGATIVE (NEGATIVE); CLARITY,URINE CLEAR; COLOR,URINE YELLOW; GLUCOSE, URINE (UA) NEGATIVE (NEGATIVE); KETONES,URINE NEGATIVE (NEGATIVE); LEUKOCYTE ESTERASE ,URINE TRACE (NEGATIVE); NITRITE,URINE NEGATIVE (NEGATIVE); PROTEIN,URINE NEGATIVE (NEGATIVE)
[2022-06-18] MEDS ORDERED: IOHEXOL 350 MG/ML 100 ML (OMNIPAQUE 350) VIAL IV ONE (05:15)
[2022-06-18] MEDS ORDERED: HOLD METFORMIN - RECEIVED CONTRAST 20 ML VIAL IV SCH (05:15)
[2022-06-18] MEDS ORDERED: NS 100 ML (IVPB) BAG IV ONE (05:15)
[2022-06-18] MEDS ORDERED: KETOROLAC 15 MG/ML VIAL IVP ONE (05:15)
[2022-06-18] MEDS ORDERED: NS IV 1000 ML 1,000 ML ONE (05:15)
[2022-06-18] MEDS ORDERED: KETOROLAC 15 MG/ML VIAL ONE (05:15)
[2022-06-18] MEDS ORDERED: NS IV 1000 ML 1,000 ML IV SCH (05:15)
--- NOTE | 2022-06-18 05:17 | ED Abdominal Pain ---
General Chief Complaint: Abdominal/GI Problems Stated Complaint: LIGHT HEADED/LOWER BACK PAIN Nursing Triage Note: Pt complaining of left lower abdominal pain that started around 2300 last night History of Present Illness Date Seen by Provider: Jun 18, 2022 Time Seen by Provider: 05:00 Initial Comments 42-year-old female with no significant PMH, is here with complaints of left flank pain and left upper quadrant pain which began around 9 PM last night. Pain level is 9/10, and constant in nature, nonradiating. Patient has had multiple episodes of diarrhea which began yesterday morning, with the abdominal pain and flank pain starting later in the night. Patient also has had nausea and vomiting, approximately 3-4 episodes yesterday. Patient vomited after food, the last time being around 6 PM when she had tacos for dinner. Patient was able to tolerate liquids. Denies chest pain, palpitations, SOB, fever and chills, cough. Patient also states that she has a strong family history of Fabry's disease, which all her uncles have. Allergies and Home Medications Allergies Coded Allergies: No Known Drug Allergies (Unverified , 03/24/19) Patient Home Medication List Home Medication List Reviewed: Yes Amoxicillin/Potassium Clav (Augmentin 500-125 Tablet) 500 Mg-125 Mg Tablet, 875 EACH PO BID Prescribed by: DONNA WYATT MD on 12/18/212157 Ciprofloxacin HCl (Ciprofloxacin HCl) 500 Mg Tablet, 500 MG PO BID Prescribed by: NICHELLE PATEL MD on 04/24/22 172 Metronidazole (Metronidazole) 500 Mg Tablet, 500 MG PO TID Prescribed by: NICHELLE PATEL MD on 04/24/22 1720 Naproxen (Naprosyn) 500 Mg Tablet, 500 MG PO BID Prescribed by: SHANTANU MACIAS on 03/23/20 0916 Ondansetron (Ondansetron Odt) 4 Mg Tab.rapdis, 4 MG PO TID Prescribed by: SHANTANU MACIAS on 09/07/20 1059 Ondansetron (Ondansetron Odt) 4 Mg Tab.rapdis, 4 MG PO TID Prescribed by: DONNA WYATT MD on 12/18/212157 Prednisone (Prednisone) 20 Mg Tab, 40 MG PO DAILY Prescribed by: ALBERT LOWRY on 03/28/19 1451 Sulfamethoxazole/Trimethoprim (Bactrim Ds Tablet) 1 Each Tablet, 1 EACH PO BID Prescribed by: LUCITA CANDELARIA on 11/23/19 1846 Sulfamethoxazole/Trimethoprim (Bactrim Ds Tablet) 1 Each Tablet, 1 EACH PO BID Prescribed by: LUCITA CANDELARIA on 03/13/21 1258 Review of Systems Review of Systems Constitutional: no symptoms reported EENTM: No Symptoms Reported Respiratory: No Symptoms Reported Cardiovascular: No Symptoms Reported Gastrointestinal: Abdominal Pain, Diarrhea, Nausea, Vomiting Genitourinary: No Symptoms Reported Musculoskeletal: no symptoms reported Skin: no symptoms reported Psychiatric/Neurological: No Symptoms Reported Endocrine: No Symptoms Reported Hematologic/Lymphatic: No Symptoms Reported Past Dlurngo-Fuhylv-Mpzgqj Hx Patient Social History Tobacco Use?: No Use of E-Cig and/or Vaping dev: No Substance use?: No Alcohol Use?: No Pt feels they are or have been: No Immunizations Up To Date First/Initial COVID19 Vaccinat: Not currently vaccinated Second COVID19 Vaccination Cale: Not currently vaccinated Third COVID19 Vaccination Date: Not currently vaccinated Seasonal Allergies Seasonal Allergies: No Past Medical History Surgery/Hospitalization HX: Hypertension Surgeries: Yes Tubal Ligation Respiratory: No Cardiac: No Neurological: No 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 oz. kg; 32.00 BMI Method: General Appearance: WD/WN, no apparent distress HEENT: PERRL/EOMI Neck: full range of motion Respiratory: chest non-tender, lungs clear, normal breath sounds Cardiovascular: regular rate, rhythm, no edema Gastrointestinal: normal bowel sounds, soft, no organomegaly, tenderness (Present in the left LUQ, left CVA tenderness) Extremities: normal range of motion Back: normal inspection, no vertebral tenderness, CVA tenderness (L) Pelvic: normal external exam Neurologic/Psychiatric: alert Skin: normal color Focused Exam Lactate Level 06/18/22 05:16: Lactic Acid Level 0.72 Lactic Acid Level Laboratory Tests Test 06/18/22 05:16 Lactic Acid Level 0.72 MMOL/L (0.50-2.00) Progress/Results/Core Measures Results/Orders Lab Results Laboratory Tests Test 06/18/22 05:00 06/18/22 05:16 06/18/22 05:20 Range/Units Urine Color YELLOW Urine Clarity CLEAR Urine pH 6.0 5-9 Urine Specific [place] 1.015 L 1.016-1.022 Urine Protein NEGATIVE NEGATIVE Urine Glucose (UA) NEGATIVE NEGATIVE Urine Ketones NEGATIVE NEGATIVE Urine Nitrite NEGATIVE NEGATIVE Urine Bilirubin NEGATIVE NEGATIVE Urine Urobilinogen 0.2 < = 1.0 MG/DL Urine Leukocyte Esterase TRACE H NEGATIVE Urine RBC (Auto) 3+ H NEGATIVE Urine RBC 3-5 /HPF Urine WBC 0-2 /HPF Urine Squamous Epithelial Cells 2-5 /HPF Urine Crystals NONE /LPF Urine Bacteria FEW H /HPF Urine Casts NONE /LPF Urine Mucus SMALL H /LPF Urine Culture Indicated NO Urine Opiates Screen NEGATIVE NEGATIVE Urine Oxycodone Screen NEGATIVE NEGATIVE Urine Methadone Screen NEGATIVE NEGATIVE Urine Propoxyphene Screen NEGATIVE NEGATIVE Urine Barbiturates Screen NEGATIVE NEGATIVE Ur Tricyclic Antidepressants Screen NEGATIVE NEGATIVE Urine Phencyclidine Screen NEGATIVE NEGATIVE Urine Amphetamines Screen NEGATIVE NEGATIVE Urine Methamphetamines Screen NEGATIVE NEGATIVE Urine Benzodiazepines Screen NEGATIVE NEGATIVE Urine Cocaine Screen NEGATIVE NEGATIVE Urine Cannabinoids Screen NEGATIVE NEGATIVE White Blood Count 7.0 4.3-11.0 10^3/uL Red Blood Count 4.23 3.80-5.11 10^6/uL Hemoglobin 12.3 11.5-16.0 g/dL Hematocrit 37 35-52 % Mean Corpuscular Volume 87 80-99 fL Mean Corpuscular Hemoglobin 29 25-34 pg Mean Corpuscular Hemoglobin Concent 34 32-36 g/dL Red Cell Distribution Width 12.7 10.0-14.5 % Platelet Count 335 130-400 10^3/uL Mean Platelet Volume 9.7 9.0-12.2 fL Immature Granulocyte % (Auto) 0 % Neutrophils (%) (Auto) 63 42-75 % Lymphocytes (%) (Auto) 24 12-44 % Monocytes (%) (Auto) 9 0-12 % Eosinophils (%) (Auto) 3 0-10 % Basophils (%) (Auto) 1 0-10 % Neutrophils # (Auto) 4.5 1.8-7.8 10^3/uL Lymphocytes # (Auto) 1.7 1.0-4.0 10^3/uL Monocytes # (Auto) 0.6 0.0-1.0 10^3/uL Eosinophils # (Auto) 0.2 0.0-0.3 10^3/uL Basophils # (Auto) 0.1 0.0-0.1 10^3/uL Immature Granulocyte # (Auto) 0.0 0.0-0.1 10^3/uL Sodium Level 139 135-145 MMOL/L Potassium Level 4.0 3.6-5.0 MMOL/L Chloride Level 104 98-107 MMOL/L Carbon Dioxide Level 25 21-32 MMOL/L Anion Gap 10 5-14 MMOL/L Blood Urea Nitrogen 9 7-18 MG/DL Creatinine 0.78 0.60-1.30 MG/DL Estimat Glomerular Filtration Rate 97 BUN/Creatinine Ratio 12 Glucose Level 110 H 70-105 MG/DL Lactic Acid Level 0.72 0.50-2.00 MMOL/L Calcium Level 9.0 8.5-10.1 MG/DL Corrected Calcium 9.2 8.5-10.1 MG/DL Magnesium Level 2.0 1.6-2.4 MG/DL Total Bilirubin 0.3 0.1-1.0 MG/DL Aspartate Amino Transf (AST/SGOT) 11 5-34 U/L Alanine Aminotransferase (ALT/SGPT) 8 0-55 U/L Alkaline Phosphatase 71 40-136 U/L Total Protein 6.7 6.4-8.2 GM/DL Albumin 3.8 3.2-4.5 GM/DL Lipase 24 8-78 U/L Influenza Type A (RT-PCR) Not Detected Not Detecte Influenza Type B (RT-PCR) Not Detected Not Detecte SARS-CoV-2 RNA (RT-PCR) Not Detected Not Detecte My Orders Orders - DONNA WYATT MD Ua Culture If Indicated (06/18/22 05:03) Ct Abdomen/Pelvis W (06/18/22 05:10) Cbc With Automated Diff (06/18/22 05:10) Comprehensive Metabolic Panel (06/18/22 05:10) Drug Screen Stat (Urine) (06/18/22 05:10) Lactic Acid Analyzer (06/18/22 05:10) Lipase (06/18/22 05:10) Magnesium (06/18/22 05:10) Ed Iv/Invasive Line Start (06/18/22 05:11) Ns Iv 1000 Ml (Sodium Chloride 0.9%) (06/18/22 05:15) Ketorolac Injection (Toradol Injection) (06/18/22 05:15) Iohexol Injection (Omnipaque 350 Mg/Ml 1 (06/18/22 05:15) Received Contrast (Hold Metformin- Contr (06/18/22 05:15) Ns (Ivpb) (Sodium Chloride 0.9% Ivpb Bag (06/18/22 05:15) Covid 19 Inhouse Test (06/18/22 05:17) Influenza A And B By Pcr (06/18/22 05:17) Ns Iv 1000 Ml (Sodium Chloride 0.9%) (06/18/22 05:15) Ketorolac Injection (Toradol Injection) (06/18/22 05:15) Ceftriaxone 1 Gm Pre-Mix (Rocephin 1 Gm (06/18/22 05:40) Medications Given in ED Current Medications Medications Dose Ordered Sig/Radha Route Start Time Stop Time Status Last Admin Dose Admin Iohexol 75 ml ONCE ONCE IV 06/18/22 05:15 06/18/22 05:16 DC 06/18/22 05:25 75 ML Ketorolac Tromethamine 15 mg ONCE ONCE IVP 06/18/22 05:15 06/18/22 05:24 DC 06/18/22 05:17 15 MG Sodium Chloride 100 ml ONCE ONCE IV 06/18/22 05:15 06/18/22 05:16 DC 06/18/22 05:25 100 ML Vital Signs/I&O 06/18/22 04:53 Temp 36.4 Pulse 87 Resp 18 B/P (MAP) 128/65 (86) Pulse Ox 98 O2 Delivery Room Air Blood Pressure Mean: 86 Progress Progress Note : Progress Note 1. LEFT LUQ/ FLANK PAIN: ACUTE CYSTITIS WITH HEMATURIA - CT ABD: Colonic diverticulosis without findings of diverticulitis. Cholelit hiasis. - CBC/ CMP: normal - Lipase: normal - UA: Positive for leukocyte esterase, RBC, and bacteria - Toradol 15mg iv STAT - NS IVF bolus STAT - Ceftriaxone 1gm iv STAT - Prescription given for cefpodoxime Q12H for 7 days -Follow-up with PCP in the next 7 days -Adequate hydration advised -Acute abdominal pathology was ruled out, with normal labs, no normal WBC, with stable vitals, afebrile. Patient's pain is likely due to an acute UTI. CT scan does show gallstones however patient has no pain in the right upper quadrant whatsoever. CT also shows diverticulosis but there is no diverticulitis. Advised patient to follow-up in surgery clinic for further investigations for gallstones and also for colonoscopy. -The patient was seen in the ED, and treated appropriately to presentation at a specific point in time. Patient is informed that there is a possibility that disease and illness can evolve and change in acuity rapidly or slowly after patient is discharged from the ER. Precautionary advice given to the patient for immediate return to ER if symptoms worsen or do not resolve, and to seek emergency care sooner rather than later. Pt also advised on the importance of PCP follow up and compliance with management and follow up plan with PCP and/or specialist, as this is part of the management plan. Pt verbally expressed understanding. Diagnostic Imaging Diagonstic Imaging: CT Plain Films/CT/US/NM/MRI: abdomen Comments [facility], [place] NAME: CORBY MARKS [facility] REC#: [id number] PT STATUS: REG ER : 1980 PHYSICIAN: DONNA WYATT MD ADMIT DATE: 06/18/22/ER FS Draft Date of Exam:06/18/22 CT ABDOMEN/PELVIS W PROCEDURE: CT abdomen and pelvis with contrast. TECHNIQUE: Multiple contiguous axial images were obtained through the abdomen and pelvis after administration of intravenous contrast. Auto Exposure Controls were utilized during the CT exam to meet ALARA standards for radiation dose reduction. All CT scans use one or more of the following dose optimizing techniques: automated exposure control, MA and/or KvP adjustment based on patient size and exam type or iterative reconstruction. INDICATION: Left upper quadrant pain and left flank pain COMPARISON: 12/18/2021 FINDINGS: The lung bases are clear. The heart is normal in size. The liver demonstrates a small hypodensity in the medial right liver measuring about 1 cm in size which is stable since the prior study and could represent a small cyst, and is likely benign. There are stones in the gallbladder. The spleen appears normal. The pancreas is normal. The adrenal glands appear normal. The kidneys demonstrate no enhancing lesions and no hydronephrosis. The appendix is normal. The bowel loops are nondistended without obstruction. There is diverticulosis of the descending and sigmoid colon without diverticulitis. No free fluid or free air is seen. The aorta is normal in caliber. There is no significant lymphadenopathy. There is a small exophytic fibroid at the fundus of the uterus. There are degenerative changes in the spine. No acute osseous abnormality is seen. IMPRESSION: 1. Colonic diverticulosis without findings of diverticulitis. 2. Cholelithiasis. Dictated on workstation # [id number] Dict: 06/18/22 0631 Trans: 06/18/22 0638 [facility] [id number] Interpreted by: SHIVAM MARQUES MD Electronically signed by: Departure Impression Primary Impression: Acute cystitis with hematuria Additional Impressions: Gallstones Diverticulosis of colon without diverticulitis Disposition: 01 HOME, SELF-CARE Condition: Stable Departure-Patient Inst. Referrals: QUANG ACOSTA,LOCAL PHYSICIAN (PCP) Primary Care Physician Patient Instructions: Gallstones (DC), Acute Cystitis (DC), Urinary Tract Infections in Adults, Diverticulosis (DC) Add. Discharge Instructions: - Prescription given for cefpodoxime Q12H for 7 days -Follow-up with PCP in the next 7 days -Adequate hydration advised - Follow up with Surgery clinic to follow up for gallstones and diverticulosis, and for colonoscopy. Call Dr Acosta's clinic for appointment All discharge instructions reviewed with patient and/or family. Voiced understanding. Scripts Cefpodoxime Proxetil (Cefpodoxime Proxetil) 100 Mg Tablet 100 MG PO Q12H for 7 Days, #14 TAB Prov: DONNA WYATT MD 06/18/22 Work/School Note: Work Release Form Date Seen in the Emergency Department: Jun 18, 2022 Return to Work: Jun 20, 2022 DONNA WYATT MD Jun 18, 2022 05:17
[2022-06-18 05:23] LABS: BACTERIA,URINE FEW /HPF; WBC,URINE 0-2 /HPF
[2022-06-18 05:37] LABS: BASOPHILS # (AUTO) 0.1 10^3/uL (0.0-0.1); BASOPHILS % (AUTO) 1 % (0-10); EOSINOPHILS # (AUTO) 0.2 10^3/uL (0.0-0.3); EOSINOPHILS % (AUTO) 3 % (0-10); HEMATOCRIT 37 % (35-52); HEMOGLOBIN 12.3 g/dL (11.5-16.0); LYMPHOCYTES # (AUTO) 1.7 10^3/uL (1.0-4.0); LYMPHOCYTES % (AUTO) 24 % (12-44); MEAN CORPUSCULAR HEMOGLOBIN 29 pg (25-34); MEAN CORPUSCULAR HGB CONC 34 g/dL (32-36); MEAN CORPUSCULAR VOLUME 87 fL (80-99); MEAN PLATELET VOLUME 9.7 fL (9.0-12.2); MONOCYTES # (AUTO) 0.6 10^3/uL (0.0-1.0); MONOCYTES % (AUTO) 9 % (0-12); NEUTROPHILS # (AUTO) 4.5 10^3/uL (1.8-7.8); NEUTROPHILS % (AUTO) 63 % (42-75); PLATELET COUNT 335 10^3/uL (130-400)
[2022-06-18] MEDS ORDERED: cefTRIAXone 1 GM PRE-MIX 50 ML IV STA (05:40)
[2022-06-18 05:45] LABS: AMPHETAMINE SCREEN, URINE NEGATIVE (NEGATIVE); BENZODIAZEPINES SCREEN URINE NEGATIVE (NEGATIVE); COCAINE SCREEN URINE NEGATIVE (NEGATIVE)
[2022-06-18 05:46] LABS: BARBITURATE SCREEN URINE NEGATIVE (NEGATIVE); CANNABINOID SCREEN, URINE NEGATIVE (NEGATIVE); METHADONE STAT NEGATIVE (NEGATIVE); OPIATE SCREEN URINE NEGATIVE (NEGATIVE); OXYCODONE STAT NEGATIVE (NEGATIVE); PROPOXYPHENE STAT NEGATIVE (NEGATIVE); TRICYCLIC ANTIDEPRESSANTS SCRE NEGATIVE (NEGATIVE)
[2022-06-18 06:03] LABS: BILIRUBIN,TOTAL 0.3 MG/DL (0.1-1.0); CREATININE SERUM 0.78 MG/DL (0.60-1.30)
[2022-06-18 06:04] LABS: ALBUMIN 3.8 GM/DL (3.2-4.5); TOTAL PROTEIN 6.7 GM/DL (6.4-8.2)
--- NOTE | 2022-06-18 06:39 | Diagnostic Imaging Report ---
PROCEDURE: CT abdomen and pelvis with contrast. TECHNIQUE: Multiple contiguous axial images were obtained through the abdomen and pelvis after administration of intravenous contrast. Auto Exposure Controls were utilized during the CT exam to meet ALARA standards for radiation dose reduction. All CT scans use one or more of the following dose optimizing techniques: automated exposure control, MA and/or KvP adjustment based on patient size and exam type or iterative reconstruction. INDICATION: Left upper quadrant pain and left flank pain COMPARISON: 12/18/2021 FINDINGS: The lung bases are clear. The heart is normal in size. The liver demonstrates a small hypodensity in the medial right liver measuring about 1 cm in size which is stable since the prior study and could represent a small cyst, and is likely benign. There are stones in the gallbladder. The spleen appears normal. The pancreas is normal. The adrenal glands appear normal. The kidneys demonstrate no enhancing lesions and no hydronephrosis. The appendix is normal. The bowel loops are nondistended without obstruction. There is diverticulosis of the descending and sigmoid colon without diverticulitis. No free fluid or free air is seen. The aorta is normal in caliber. There is no significant lymphadenopathy. There is a small exophytic fibroid at the fundus of the uterus. There are degenerative changes in the spine. No acute osseous abnormality is seen. IMPRESSION: 1. Colonic diverticulosis without findings of diverticulitis. 2. Cholelithiasis. Dictated by: Dictated on workstation # [id number]
[2022-06-18] MEDS ORDERED: CEFP100T2 PO (07:04)
== END 2022-06-18 07:10 | disposition home or self-care (01) ==
LOC: EDUNIT# 04:47 → ER FS 04:51
DX: N30.01 Acute cystitis with hematuria (principal); K80.20 Calculus of gallbladder without cholecystitis without obstruction; K57.30 Diverticulosis of large intestine without perforation or abscess without bleeding; Z20.822 Contact with and (suspected) exposure to COVID-19; Z28.310 Unvaccinated for COVID-19
CPT/HCPCS: 36415; 74177; 80053; 80306; 81000; 83605; 83690; 83735; 85025; 87636; Q9967

== ENCOUNTER 2022-09-13 04:37 | Emergency (ER) | payer SELFPAY ==
[~2022-09-13] VITALS: Ht 162.5 cm; Wt 90.3 kg
[~2022-09-13 04:37] MED LIST changes: +CEFP100T2 PO
[2022-09-13] MEDS ORDERED: KETOROLAC 15 MG/ML VIAL IVP ONE (05:00)
[2022-09-13] MEDS ORDERED: PANTOPRAZOLE 40 MG (PROTONIX) VIAL IV ONE (05:00)
--- NOTE | 2022-09-13 05:00 | ED Abdominal Pain ---
General Chief Complaint: Abdominal/GI Problems Stated Complaint: ABD PAIN, BLOODY STOOLS Source of Information: Patient, Old Records Exam Limitations: No Limitations History of Present Illness Date Seen by Provider: September 13, 2022 Time Seen by Provider: 04:44 Initial Comments 42-year-old female with no pertinent past medical history coming in due to left lower quadrant abdominal pain. Started this morning about an hour prior to arrival and woke her up. She had 1 episode of bloody diarrhea where the blood was mixed in with normal stool. She does not take any blood thinners, denies any nausea or vomiting, no fever, dysuria, vaginal bleeding, vaginal discharge, or rash. LMP was a week ago and she has had a tubal ligation. Allergies and Home Medications Allergies Coded Allergies: No Known Drug Allergies (Unverified , 03/24/19) Patient Home Medication List Home Medication List Reviewed: Yes No Active Prescriptions or Reported Meds Review of Systems Review of Systems Constitutional: No fever EENTM: No Symptoms Reported Respiratory: No Symptoms Reported Cardiovascular: No Symptoms Reported Gastrointestinal: See HPI Genitourinary: No Symptoms Reported Musculoskeletal: no symptoms reported Skin: no symptoms reported Psychiatric/Neurological: No Symptoms Reported Endocrine: No Symptoms Reported Hematologic/Lymphatic: No Symptoms Reported Past Osmigdu-Tmvknk-Jjdvww Hx Patient Social History Tobacco Use?: Yes Tobacco type used: Cigarettes Smoking Status: Current Everyday Smoker Use of E-Cig and/or Vaping dev: No Substance use?: No Alcohol Use?: Yes Alcohol Frequency: Once in a while Pt feels they are or have been: No Immunizations Up To Date Influenza Vaccine Up-to-Date: No; Not Current First/Initial COVID19 Vaccinat: Not currently vaccinated Second COVID19 Vaccination Cale: Not currently vaccinated Third COVID19 Vaccination Date: Not currently vaccinated Seasonal Allergies Seasonal Allergies: No Past Medical History Surgery/Hospitalization HX: Hypertension, Tubal ligation Surgeries: Yes Tubal Ligation Respiratory: No Cardiac: No 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 oz. kg; 32.00 BMI Method: General Appearance: WD/WN, mild distress HEENT: PERRL/EOMI, normal ENT inspection, pharynx normal Neck: non-tender, full range of motion, supple, normal inspection Respiratory: chest non-tender, lungs clear, normal breath sounds, no respiratory distress, no accessory muscle use Cardiovascular: regular rate, rhythm, no edema, no murmur Gastrointestinal: normal bowel sounds; No distended, No guarding, No rebound; tenderness Extremities: normal range of motion, non-tender, normal inspection, no pedal edema, no calf tenderness, normal capillary refill Back: normal inspection, no CVA tenderness Neurologic/Psychiatric: no motor/sensory deficits, alert, normal mood/affect Skin: normal color, warm/dry Progress/Results/Core Measures Results/Orders Lab Results Laboratory Tests Test 09/13/22 05:05 09/13/22 05:13 Range/Units White Blood Count 11.0 4.3-11.0 10^3/uL Red Blood Count 4.31 3.80-5.11 10^6/uL Hemoglobin 12.2 11.5-16.0 g/dL Hematocrit 38 35-52 % Mean Corpuscular Volume 88 80-99 fL Mean Corpuscular Hemoglobin 28 25-34 pg Mean Corpuscular Hemoglobin Concent 32 32-36 g/dL Red Cell Distribution Width 12.8 10.0-14.5 % Platelet Count 317 130-400 10^3/uL Mean Platelet Volume 9.4 9.0-12.2 fL Immature Granulocyte % (Auto) 0 % Neutrophils (%) (Auto) 74 42-75 % Lymphocytes (%) (Auto) 14 12-44 % Monocytes (%) (Auto) 9 0-12 % Eosinophils (%) (Auto) 2 0-10 % Basophils (%) (Auto) 1 0-10 % Neutrophils # (Auto) 8.2 H 1.8-7.8 10^3/uL Lymphocytes # (Auto) 1.5 1.0-4.0 10^3/uL Monocytes # (Auto) 1.0 0.0-1.0 10^3/uL Eosinophils # (Auto) 0.2 0.0-0.3 10^3/uL Basophils # (Auto) 0.1 0.0-0.1 10^3/uL Immature Granulocyte # (Auto) 0.0 0.0-0.1 10^3/uL Prothrombin Time 12.5 12.2-14.7 SEC INR Comment 0.9 0.8-1.4 Sodium Level 135 135-145 MMOL/L Potassium Level 4.2 3.6-5.0 MMOL/L Chloride Level 103 98-107 MMOL/L Carbon Dioxide Level 23 21-32 MMOL/L Anion Gap 9 5-14 MMOL/L Blood Urea Nitrogen 12 7-18 MG/DL Creatinine 0.69 0.60-1.30 MG/DL Estimat Glomerular Filtration Rate 110 BUN/Creatinine Ratio 17 Glucose Level 110 H 70-105 MG/DL Calcium Level 8.8 8.5-10.1 MG/DL Corrected Calcium 9.0 8.5-10.1 MG/DL Magnesium Level 2.0 1.6-2.4 MG/DL Total Bilirubin 0.2 0.1-1.0 MG/DL Aspartate Amino Transf (AST/SGOT) 13 5-34 U/L Alanine Aminotransferase (ALT/SGPT) 8 0-55 U/L Alkaline Phosphatase 73 40-136 U/L C-Reactive Protein 1.13 H <0.50 MG/DL Total Protein 6.7 6.4-8.2 GM/DL Albumin 3.8 3.2-4.5 GM/DL Lipase 26 8-78 U/L Serum Test, Qualitative NEGATIVE NEGATIVE Urine Color YELLOW Urine Clarity CLOUDY Urine pH 6.0 5-9 Urine Specific [place] 1.020 1.016-1.022 Urine Protein NEGATIVE NEGATIVE Urine Glucose (UA) NEGATIVE NEGATIVE Urine Ketones NEGATIVE NEGATIVE Urine Nitrite NEGATIVE NEGATIVE Urine Bilirubin NEGATIVE NEGATIVE Urine Urobilinogen 0.2 < = 1.0 MG/DL Urine Leukocyte Esterase NEGATIVE NEGATIVE Urine RBC (Auto) 1+ H NEGATIVE Urine RBC RARE /HPF Urine WBC 0-2 /HPF Urine Squamous Epithelial Cells 10-25 H /HPF Urine Crystals NONE /LPF Urine Bacteria FEW H /HPF Urine Casts NONE /LPF Urine Mucus MODERATE H /LPF Urine Other OCC. CLUE CELLS /HPF Urine Culture Indicated NO My Orders Orders - MERRITT OLIVARES MD Cbc With Automated Diff (09/13/22 04:57) Comprehensive Metabolic Panel (09/13/22 04:57) Hcg,Qualitative Serum (09/13/22 04:57) Lipase (09/13/22 04:57) Magnesium (09/13/22 04:57) Protime With Inr (09/13/22 04:57) Ua Culture If Indicated (09/13/22 04:57) Crp Fs (09/13/22 04:57) Ct Abdomen/Pelvis W (09/13/22 04:57) Ketorolac Injection (Toradol Injection) (09/13/22 05:00) Pantoprazole Injection (Protonix Injecti (09/13/22 05:00) Iohexol Injection (Omnipaque 350 Mg/Ml 1 (09/13/22 05:45) Received Contrast (Hold Metformin- Contr (09/13/22 05:45) Sodium Chloride Flush (Catheter Flush Sy (09/13/22 05:45) Ns (Ivpb) (Sodium Chloride 0.9% Ivpb Bag (09/13/22 05:45) Medications Given in ED Current Medications Medications Dose Ordered Sig/Radha Route Start Time Stop Time Status Last Admin Dose Admin Iohexol 100 ml ONCE ONCE IV 09/13/22 05:45 09/13/22 05:46 DC 09/13/22 05:59 80 ML Ketorolac Tromethamine 15 mg ONCE ONCE IVP 09/13/22 05:00 09/13/22 05:01 DC 09/13/22 05:08 15 MG Pantoprazole 40 mg ONCE ONCE IV 09/13/22 05:00 09/13/22 05:01 DC 09/13/22 05:07 40 MG Sodium Chloride 10 ml NEEDED PRN IV 09/13/22 05:45 09/13/22 06:00 10 ML Sodium Chloride 100 ml ONCE ONCE IV 09/13/22 05:45 09/13/22 05:46 DC 09/13/22 06:00 100 ML Vital Signs/I&O 09/13/22 09/13/22 04:45 05:08 Temp 36.5 36.5 Pulse 89 Resp 16 B/P (MAP) 123/64 (83) Pulse Ox 97 O2 Delivery Room Air Progress Progress Note : Progress Note 42-year-old female with above history coming in due to left lower quadrant abdominal pain. ABCs were intact and vitals were stable on presentation. She is tender in the left lower quadrant but no signs of peritonitis. An IV was placed and basic labs were obtained including inflammatory markers. CT abdomen pelvis ordered to assess for diverticulitis versus obstruction versus atypical appendicitis versus some other etiology. She was given Toradol for pain as well as pantoprazole. White blood cell count was normal, creatinine normal, negative test, CRP slightly elevated, urinalysis likely with a contaminated specimen. CT abdomen pelvis on my interpretation with some fat stranding in the colon where she has known diverticulosis which is likely diverticulitis. The patient will be given Augmentin here followed by a prescription with pain medication as well. I believe she stable for discharge with outpatient follow- up. She was sent home with strict return precautions. Diagnostic Imaging Diagonstic Imaging: CT (abd/pelvis) Comments [facility]. [place], [place] NAME: CORBY MARKS [facility] REC#: [id number] PT STATUS: REG ER : 1980 PHYSICIAN: MERRITT OLIVARES MD ADMIT DATE: 09/13/22/ER FS Signed Date of Exam:09/13/22 CT ABDOMEN/PELVIS W PROCEDURE: CT abdomen and pelvis with contrast. TECHNIQUE: Multiple contiguous axial images were obtained through the abdomen and pelvis after administration of intravenous contrast. Auto Exposure Controls were utilized during the CT exam to meet ALARA standards for radiation dose reduction. All CT scans use one or more of the following dose optimizing techniques: automated exposure control, MA and/or KvP adjustment based on patient size and exam type or iterative reconstruction. INDICATION: Acute onset abdominal pain The lung bases are clear. Liver appears normal. There appear to be stones in the gallbladder. Portal vein is patent. Common duct is not dilated. Pancreas is normal. Spleen is not enlarged. Adrenals are normal. Kidneys appear normal. Aorta and IVC appear normal. Small bowel is not dilated. The appendix is normal. There is diverticulosis of the colon with acute diverticulitis in the mid descending colon. Uterus and adnexa are unremarkable. Urinary bladder is normal. There is no intraperitoneal free air or free fluid. IMPRESSION: Acute diverticulitis in the mid descending colon in the left mid upper abdomen. Suspected cholecystolithiasis. Dictated by: Dictated on workstation # [id number] Dict: 09/13/22608 Trans: 09/13/22610 [facility] [id number] Interpreted by: MIRA NROMAN MD Electronically signed by: MIRA NORMAN MD 09/13/22610 Departure Impression Primary Impression: Diverticulitis large intestine Qualified Codes: K57.33 - Diverticulitis of large intestine without perforation or abscess with bleeding Additional Impression: Diverticulosis of colon without diverticulitis Disposition: HOME, SELF-CARE Condition: Stable Departure-Patient Inst. Decision time for Depature: 06:30 Referrals: RAMA CHIU DO (PCP) Primary Care Physician NO,LOCAL PHYSICIAN (Family) Primary Care Physician Patient Instructions: Diverticulitis Add. Discharge Instructions: You have diverticulitis which is an infection in some pockets that you have in your colon. You will be on antibiotics for the next week as well as you can take ibuprofen for pain. If you have pain on top of that, you can take hydrocodone. There will be some bleeding with this until it heals. Scripts Ondansetron (Ondansetron Odt) 4 Mg Tab.rapdis 4 MG SL Q6H PRN for NAUSEA/VOMITING for 5 Days, #20 TAB Prov: MERRITT OLIVARES MD 09/13/22 Hydrocodone/Acetaminophen (Hydrocodone-Acetamin 5-325 mg) 5 Mg-325 Mg Tablet 1 TAB PO Q6H PRN for PAIN-MODERATE (5-7) for 3 Days, #12 TAB Prov: MERRITT OLIVARES MD 09/13/22 Amoxicillin/Potassium Clav (Amox Tr-K Clv 875-125 mg Tab) 875 Mg-125 Mg Tablet 1 EACH PO BID for 7 Days, #14 TAB Prov: MERRITT OLIVARES MD 09/13/22 Work/School Note: Work Release Form Date Seen in the Emergency Department: September 13, 2022 Return to Work: September 14, 2022 Restrictions: No Restrictions MERRITT OLIVARES MD September 13, 2022 05:00
[2022-09-13 05:14] LABS: BASOPHILS # (AUTO) 0.1 10^3/uL (0.0-0.1); BASOPHILS % (AUTO) 1 % (0-10); EOSINOPHILS # (AUTO) 0.2 10^3/uL (0.0-0.3); EOSINOPHILS % (AUTO) 2 % (0-10); HEMATOCRIT 38 % (35-52); HEMOGLOBIN 12.2 g/dL (11.5-16.0); LYMPHOCYTES # (AUTO) 1.5 10^3/uL (1.0-4.0); LYMPHOCYTES % (AUTO) 14 % (12-44); MEAN CORPUSCULAR HEMOGLOBIN 28 pg (25-34); MEAN CORPUSCULAR HGB CONC 32 g/dL (32-36); MEAN CORPUSCULAR VOLUME 88 fL (80-99); MEAN PLATELET VOLUME 9.4 fL (9.0-12.2); MONOCYTES % (AUTO) 9 % (0-12); NEUTROPHILS # (AUTO) 8.2 10^3/uL (1.8-7.8); NEUTROPHILS % (AUTO) 74 % (42-75); PLATELET COUNT 317 10^3/uL (130-400)
[2022-09-13 05:31] LABS: BILIRUBIN,URINE NEGATIVE (NEGATIVE); CLARITY,URINE CLOUDY; COLOR,URINE YELLOW; GLUCOSE, URINE (UA) NEGATIVE (NEGATIVE); KETONES,URINE NEGATIVE (NEGATIVE); LEUKOCYTE ESTERASE ,URINE NEGATIVE (NEGATIVE); NITRITE,URINE NEGATIVE (NEGATIVE); PROTEIN,URINE NEGATIVE (NEGATIVE)
[2022-09-13 05:44] LABS: INR 0.9 (0.8-1.4); PROTHROMBIN TIME PATIENT 12.5 SEC (12.2-14.7)
[2022-09-13 05:45] LABS: BILIRUBIN,TOTAL 0.2 MG/DL (0.1-1.0); CALCIUM 8.8 MG/DL (8.5-10.1); CREATININE SERUM 0.69 MG/DL (0.60-1.30); POTASSIUM 4.2 MMOL/L (3.6-5.0); TOTAL PROTEIN 6.7 GM/DL (6.4-8.2)
[2022-09-13] MEDS ORDERED: HOLD METFORMIN - RECEIVED CONTRAST 20 ML VIAL IV SCH (05:45)
[2022-09-13] MEDS ORDERED: CATHETER FLUSH 10 ML SYR IV PRN (05:45)
[2022-09-13] MEDS ORDERED: NS 100 ML (IVPB) BAG IV ONE (05:45)
[2022-09-13] MEDS ORDERED: IOHEXOL 350 MG/ML 100 ML (OMNIPAQUE 350) VIAL IV ONE (05:45)
[2022-09-13 05:46] LABS: ALBUMIN 3.8 GM/DL (3.2-4.5)
[2022-09-13 05:47] LABS: BACTERIA,URINE FEW /HPF; RBC,URINE RARE /HPF; WBC,URINE 0-2 /HPF
[2022-09-13 05:48] LABS: URINE OTHER OCC. CLUE CELLS /HPF
--- NOTE | 2022-09-13 06:12 | Diagnostic Imaging Report ---
PROCEDURE: CT abdomen and pelvis with contrast. TECHNIQUE: Multiple contiguous axial images were obtained through the abdomen and pelvis after administration of intravenous contrast. Auto Exposure Controls were utilized during the CT exam to meet ALARA standards for radiation dose reduction. All CT scans use one or more of the following dose optimizing techniques: automated exposure control, MA and/or KvP adjustment based on patient size and exam type or iterative reconstruction. INDICATION: Acute onset abdominal pain The lung bases are clear. Liver appears normal. There appear to be stones in the gallbladder. Portal vein is patent. Common duct is not dilated. Pancreas is normal. Spleen is not enlarged. Adrenals are normal. Kidneys appear normal. Aorta and IVC appear normal. Small bowel is not dilated. The appendix is normal. There is diverticulosis of the colon with acute diverticulitis in the mid descending colon. Uterus and adnexa are unremarkable. Urinary bladder is normal. There is no intraperitoneal free air or free fluid. IMPRESSION: Acute diverticulitis in the mid descending colon in the left mid upper abdomen. Suspected cholecystolithiasis. Dictated by: Dictated on workstation # [id number]
[2022-09-13] MEDS ORDERED: ONDA4TAB11 SL (06:29)
[2022-09-13] MEDS ORDERED: ACHD5005 PO (06:29)
[2022-09-13] MEDS ORDERED: AMOX1TAB12 PO (06:29)
[2022-09-13 06:30] VITALS: BP 116/64
== END 2022-09-13 06:30 | disposition home or self-care (01) ==
LOC: EDUNIT# 04:37 → ER FS 04:40
DX: K57.32 Diverticulitis of large intestine without perforation or abscess without bleeding (principal); K57.30 Diverticulosis of large intestine without perforation or abscess without bleeding; F17.210 Nicotine dependence, cigarettes, uncomplicated; Z28.310 Unvaccinated for COVID-19
CPT/HCPCS: 36415; 74177; 80053; 81000; 83690; 83735; 84703; 85025; 85610; 86141; Q9967

== ENCOUNTER 2023-02-04 07:18 | Emergency (ER) | payer SELFPAY ==
[~2023-02-04] VITALS: Ht 162 cm; Wt 84.0 kg
[~2023-02-04 07:18] MED LIST changes: +ACHD5005 PO; +AMOX1TAB12 PO; +ONDA4TAB11 SL
[2023-02-04] MEDS ORDERED: PROCHLORPERAZINE INJ 10 MG/2ML VIAL IM ONE (07:30)
[2023-02-04] MEDS ORDERED: diphenhydrAMINE INJ 50 MG/ML VIAL IM ONE (07:30)
[2023-02-04] MEDS ORDERED: ONDA8TAB13 SL (07:33)
--- NOTE | 2023-02-04 07:34 | ED Headache ---
General Chief Complaint: Head/Cervical Problems Stated Complaint: LT ARM NUMBNESS; LIGHT HEADED Source: patient Exam Limitations: no limitations History of Present Illness Date Seen by Provider: Feb 04, 2023 Time Seen by Provider: 07:21 Initial Comments 42-year-old female presents to the emergency department today for headache. She states she had a migraine for 4 days, has just been laying in a dark room according to her report. She denies any fevers or chills. She has nausea with no vomiting. This morning she states she woke up and felt lightheaded and some left arm numbness. Lightheadedness is described as positional, feeling dizzy when she stands up. Left arm numbness just started upon awakening this morning at about 630. She denies any weakness. She has never had similar symptoms in the past. No known injuries. No neck pain. All other systems reviewed and negative except documented per HPI. Voice recognition software was used to help create this chart Allergies and Home Medications Allergies Coded Allergies: No Known Drug Allergies (Unverified , 03/24/19) Patient Home Medication List Home Medication List Reviewed: Yes Amoxicillin/Potassium Clav (Amox Tr-K Clv 875-125 mg Tab) 875 Mg-125 Mg Tablet, 1 EACH PO BID Prescribed by: MERRITT OLIVARES on 09/13/22628 Hydrocodone/Acetaminophen (Hydrocodone-Acetamin 5-325 mg) 5 Mg-325 Mg Tablet, 1 TAB PO Q6H PRN for PAIN-MODERATE (5-7) Prescribed by: MERRITT OLIVARES on 09/13/22 06 Ondansetron (Ondansetron Odt) 4 Mg Tab.rapdis, 4 MG SL Q6H PRN for NAUSEA/VOMITING Prescribed by: MERRITT OLIVARES on 09/13/22628 Review of Systems Review of Systems Constitutional: see HPI Past Mraiyez-Thvfsk-Prrzre Hx Patient Social History Tobacco Use?: No Use of E-Cig and/or Vaping dev: No Substance use?: No Alcohol Use?: Yes Alcohol Frequency: Once in a while Immunizations Up To Date First/Initial COVID19 Vaccinat: Not currently vaccinated Second COVID19 Vaccination Cale: Not currently vaccinated Third COVID19 Vaccination Date: Not currently vaccinated Seasonal Allergies Seasonal Allergies: No Past Medical History Surgery/Hospitalization HX: Hypertension, Tubal ligation Surgeries: Yes Tubal Ligation Respiratory: No Cardiac: No 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 oz. kg; 34.00 BMI Method: General Appearance: WD/WN, no apparent distress HEENT: PERRL/EOMI, normal ENT inspection, pharynx normal Neck: non-tender, supple Cardiovascular: regular rate, rhythm, no murmur Respiratory: chest non-tender, lungs clear, normal breath sounds, no respiratory distress, no accessory muscle use Gastrointestinal: normal bowel sounds, non tender, soft, no organomegaly Extremities: normal range of motion, non-tender, normal inspection, normal capillary refill Psychiatric: alert, oriented x 3 Crainal Nerves: normal hearing, normal speech Coordination/Gait: normal finger to nose Motor/Sensory: no motor deficit, no sensory deficit, no pronator drift Skin: normal color, warm/dry Progress/Results/Core Measures Results/Orders My Orders Orders - AMANDANICHELLE FERNANDO DO Prochlorperazine Injection (Prochlorpera (02/04/23 07:30) Diphenhydramine Injection (Diphenhydram (02/04/23 07:30) Departure Communication (Admissions) Patient is hemodynamically stable, neurologically intact. Left arm has no weakness and she has focal numbness really near the wrist and hand. Again she has full strength and motor. Good pulses and capillary refill. This does not appear to be from a focal neurologic lesion based on the patient. I believe she may have slept on her arm wrong causing her current symptoms. We will plan to treat her migraine with Compazine and Benadryl. Her daughter is at bedside and will be driving. Impression Primary Impression: Migraine headache Qualified Codes: G43.909 - Migraine, unspecified, not intractable, without s tatus migrainosus Additional Impression: Left arm numbness Disposition: 01 HOME, SELF-CARE Condition: Stable Departure-Patient Inst. Referrals: RAMA CHIU DO (PCP) Primary Care Physician NO,LOCAL PHYSICIAN (Family) Primary Care Physician Patient Instructions: Migraines (DC) Add. Discharge Instructions: I believe your left arm numbness is from sleeping on it wrong. I have given you Compazine and Benadryl in shot form for your headache. This should help to break the cycle of migraine headache. Continue to use ibuprofen and Tylenol at home as needed. I prescribed a nausea medicine that he may take at home as needed as well. Increase your fluids. Return to the ER for any severe concerns. All discharge instructions reviewed with patient and/or family. Voiced understanding. Scripts Ondansetron (Ondansetron Odt) 8 Mg Tab.rapdis 8 MG SL Q6H PRN for NAUSEA/VOMITING for 3 Days, #12 TAB Prov: NICHELLE PATEL DO 02/04/23 NICHELLE PATEL DO Feb 04, 2023 07:34
[2023-02-04 07:38] VITALS: BP 125/94
== END 2023-02-04 07:39 | disposition home or self-care (01) ==
LOC: EDUNIT# 07:18 → ER FS 07:19
DX: G43.909 Migraine, unspecified, not intractable, without status migrainosus (principal); R20.0 Anesthesia of skin; Z28.310 Unvaccinated for COVID-19
CPT/HCPCS: 99284